=== PATIENT | male | born 1965 | race Caucasian/White ===

== ENCOUNTER 2025-06-04 10:30 | Inpatient (IN) | payer OTHER ==
--- OUTSIDE RECORDS SUMMARY | 2025-06-04 12:08 | XMS REPORT | Continuity of Care Document ---
Author Name Unknown Address [address] [facility] [place] [address] [facility] Address [address] [place] [address] Care Team Providers Care Zigzag Topstitcher Name Role Phone Unit, [place] Primary Care Physician [phone] JIGNA MABRY Attending Clinician Unavailab Parveen Lowe Attending Clinician [phone] Abel Lyons Attending Clinician Unavailable ALBERTO RODRIGUEZ Attending Clinician Unavailable Alberto Rodriguez MD Attending Clinician [phone] Doctor Unassigned, [place] Attending Clinician U agus Baires Attending Clinician Unavailable PORTILLO ALDANA Attending Clinician Unavailable EVERTON NAVA Attending Clinician Unavailable THUY VINCENT Attending Clinician Unavailab LORI Mtz Attending Clinician Unavailable CALLIE MCCLAIN Attending Clinician Unavailab Abel Morales Admitting Clinician Unavailable ALBERTO RODRIGUEZ Admitting Clinician Unavailable Alberto Rodriguez MD Admitting Clinician [phone] Dequan Admitting Clinician Unavailable Payers Payer Name Policy Type Policy Number Effective Date Expirati on Date Source Problems Condition Name Condition Details Condition Category Status Onset Date Resolution Date Last Treatment Date Treating Clinician Comments Source Incarcerat ed right inguinal hernia Incarcerat ed right inguinal hernia Disease Active 09-11 00:00: 00 [facility] Dysuria Dysuria Problem Active 11-08 00:00: 00 [facility] History of non-Hodgki ns lymphoma History of non-Hodgki ns Lymphoma Problem Active 11-08 00:00: 00 [facility] 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 Disease Active 09-24 00:00: 00 [facility] Allergies, Adverse Reactions, Alerts Allergy Name Allergy Type Status Severity Reaction(s) Onset Date Inactive Date Treating Clinician Comments Source No Known Allergie s DA Active U 09-26 00:00: 00 [facility] NO KNOWN ALLERGIE S Drug Class Active [facility] Social History Social Habit Start Date Stop Date Quantity Comments Source [facility] of Social function 2022-10-09 00:00:00 2022-10-09 00:00:00 [facility] Alcohol intake 2022-10-09 00:00:00 2022-10-09 00:00:00 Ex-drinker (finding) [facility] Exposure to SARS-CoV-2 (event) 2022-09-01 00:00:00 2022-09-11 14:41:00 Not sure [facility] Tobacco use and exposure 2022-09-11 00:00:00 2022-09-11 00:00:00 Smokeless tobacco non-user [facility] Sex assigned at 1965 00:00:00 1965 00:00:00 [facility] Smoking Status Start Date Stop Date Source Tobacco smoking consumption unknown [facility] Never smoked tobacco [facility] Medications Ordered Medication Name Filled Medication Name Start Date Stop Date Current Medication? Ordering Clinician Indication Dosage Frequency Signature (SIG) Comments Components Source ketorolac 60 mg/2 mL intramuscul ar solutionInj ect 2 mL by intramuscul ar route. ketorolac 60 mg/2 mL intramuscul ar solutionInj ect 2 mL by intramuscul ar route. 12-20 14:05: 00 No 2mL ketorolac 60 mg/2 mL intramuscu lar solutionIn ject 2 mL by intramuscu lar route. [facility] ibuprofen 800 mg tablet 2-10 00:00: 00 Yes [id number] 800mg Take 1 tablet by mouth every 6 (six) hours as needed for Pain (scale 4-6). [facility] gabapentin 100 mg capsule 2-10 00:00: 00 Yes [id number] 100mg Take 1 capsule by mouth in the morning and 1 capsule at noon and 1 capsule in the evening. [facility] HYDROcodone -acetaminop hen (NORCO) 5-325 mg tablet -10 00:00: 00 10-17 05:59 :00 No [id number] 1{tbl} Take 1 tablet by mouth every 12 (twelve) hours as needed for Pain (scale 7-10) for up to 7 days. Indication s: acute pain [facility] HYDROcodone -acetaminop hen (NORCO) 5-325 mg tablet 09-16 00:00: 00 09-24 05:59 :00 No 4647 1{tbl} Take 1 tablet by mouth every 8 (eight) hours as needed for Pain (scale 7-10) for up to 7 days. Indication s: acute pain [facility] HYDROcodone -acetaminop hen (NORCO 5) 5-325 mg tablet 1 tablet 09-12 02:15: 00 09-12 02:35 :00 No 1{tbl} 1 tablet, Oral, ONCE, 1 dose, On Wed09/11/22 at 2015, Routine, PACU [facility] FENTanyl PF (SUBLIMAZE (PF)) injection 25 mcg 09-12 01:39: 33 Yes 25ug 25 mcg, Slow IV Push, Q5MIN PRN, 4 doses, Starting on Wed09/11/22 at 1939, Until Discontinu ed, Routine, Pain (scale 4-6), PACU [facility] ondansetron (ZOFRAN (PF)) injection 4 mg 09-12 01:39: 33 Yes 4mg 4 mg, Slow IV Push, PRN, 1 dose, Starting on Wed09/11/22 at 1939, Until Discontinu ed, Routine, Nausea and Vomiting (N/V), PACU [facility] bupivacaine (preserv free) (SENSORCAIN E MPF) 0.25 % (2.5 mg/mL) 30 mL, bupivacaine liposome (PF) (EXPAREL (PF)) 1.3 % (13.3 mg/mL) 266 mg, NaCl 0.9% (NS) 50 mL 09-11 22:50: 00 09-12 01:36 :38 No PRN, Starting on Wed09/11/22 at 1650, Intra-op [facility] sodium chloride 0.9 % irrigation solution 09-11 22:28: 00 09-12 01:36 :38 No PRN, Starting on Wed09/11/22 at 1628, Until Wed09/11/22 at 1936, Intra-op [facility] ondansetron (ZOFRAN (PF)) injection 4 mg 09-11 21:45: 00 09-11 21:36 :00 No 4mg 4 mg, Slow IV Push, ONCE, 1 dose, On Wed09/11/22 at 1545, DARIAN [facility] ibuprofen 800 mg tablet 09-11 00:00: 00 Yes [id number] 800mg Take 1 tablet by mouth every 6 (six) hours as needed for Pain (scale 4-6). [facility] HYDROcodone -acetaminop hen (NORCO) 5-325 mg tablet 09-11 00:00: 00 09-19 05:59 :00 No [id number] 1{tbl} Take 1 tablet by mouth every 6 (six) hours as needed for Pain (scale 7-10) for up to 7 days. Indication s: acute pain [facility] amoxicillin amoxicillin No am [facility] amoxicillin 875 mg-potassiu m clavulanate 125 mg tablet TAKE ONE (1) TABLET(S) BY MOUTH EVERY TWELVE HOURS FOR 7 DAYS. DISCARD REMAINDER. amoxicillin 875 mg-potassiu m clavulanate 125 mg tablet TAKE ONE (1) TABLET(S) BY MOUTH EVERY TWELVE HOURS FOR 7 DAYS. DISCARD REMAINDER. No amoxicilli n 875 mg-potassi um clavulanat e 125 mg tablet TAKE ONE (1) TABLET(S) BY MOUTH EVERY TWELVE HOURS FOR 7 DAYS. DISCARD REMAINDER. [facility] bromphenira mine-pseudo ephedrine-D M 2 mg-30 mg-10 mg/5 mL oral syrup TAKE 10 ML(S) BY MOUTH EVERY FOUR HOURS NEEDED FOR COUGH AND CONGESTION. bromphenira mine-pseudo ephedrine-D M 2 mg-30 mg-10 mg/5 mL oral syrup TAKE 10 ML(S) BY MOUTH EVERY FOUR HOURS NEEDED FOR COUGH AND CONGESTION. No bromphenir amine-pseu doephedrin e-DM 2 mg-30 mg-10 mg/5 mL oral syrup TAKE 10 ML(S) BY MOUTH EVERY FOUR HOURS NEEDED FOR COUGH AND CONGESTION . [facility] lisinopril lisinopril No lisinopril [facility] lisinopril 10 mg tablet TAKE ONE (1) TABLET(S) BY MOUTH ONCE A DAY. lisinopril 10 mg tablet TAKE ONE (1) TABLET(S) BY MOUTH ONCE A DAY. No lisinopril 10 mg tablet TAKE ONE (1) TABLET(S) BY MOUTH ONCE A DAY. [facility] naproxen 500 mg tablet TAKE ONE (1) TABLET(S) BY MOUTH TWICE A DAY NEEDED FOR PAIN. naproxen 500 mg tablet TAKE ONE (1) TABLET(S) BY MOUTH TWICE A DAY NEEDED FOR PAIN. No naproxen 500 mg tablet TAKE ONE (1) TABLET(S) BY MOUTH TWICE A DAY NEEDED FOR PAIN. [facility] tramadol 50 mg tablet TAKE ONE (1) TABLET(S) BY MOUTH EVERY SIX HOURS NEEDED FOR 3 DAYS NEEDED FOR PAIN. tramadol 50 mg tablet TAKE ONE (1) TABLET(S) BY MOUTH EVERY SIX HOURS NEEDED FOR 3 DAYS NEEDED FOR PAIN. No tramadol 50 mg tablet TAKE ONE (1) TABLET(S) BY MOUTH EVERY SIX HOURS NEEDED FOR 3 DAYS NEEDED FOR PAIN. [facility] Vital Signs Vital Name Observation Time Observation Value Comments S ource BP Diastolic 2024-12-20 00:00:00 106 mm[Hg] [facility] Body Weight 2024-12-20 00:00:00 3137 [oz_av] [facility] Height 2024-12-20 00:00:00 73 [in_i] [facility] BP Systolic 2024-12-20 00:00:00 153 mm[Hg] [facility] BMI (Body Mass Index) 2024-12-20 00:00:00 25.9 kg/m2 [facility] Systolic blood pressure 2022-10-09 22:21:00 128 mm[Hg] [facility] Diastolic blood pressure 2022-10-09 22:21:00 93 mm[Hg] [facility] Heart rate 2022-10-09 22:21:00 97 /min [facility] Oxygen saturation in Arterial blood by Pulse oximetry 2022-10-09 22:21:00 99 /min [facility] Body temperature 2022-10-09 22:15:00 36.06 Mary Lou [facility] Respiratory rate 2022-10-09 22:15:00 18 /min [facility] Body weight 2022-10-09 22:15:00 85.639 kg [facility] BMI 2022-10-09 22:15:00 24.91 kg/m2 [facility] Body height 2022-10-09 22:09:00 185.4 cm [facility] Systolic blood pressure 2022-09-24 16:09:00 147 mm[Hg] [facility] Diastolic blood pressure 2022-09-24 16:09:00 102 mm[Hg] [facility] Heart rate 2022-09-24 16:09:00 87 /min Unive [facility] Oxygen saturation in Arterial blood by Pulse oximetry 2022-09-24 16:09:00 98 /min [facility] Body temperature 2022-09-24 16:08:00 36.22 Mary Lou [facility] Respiratory rate 2022-09-24 16:08:00 18 /min [facility] Body height 2022-09-24 16:08:00 182.9 cm [facility] Body weight 2022-09-24 16:08:00 84.188 kg [facility] BMI 2022-09-24 16:08:00 25.17 kg/m2 [facility] Heart rate 2022-09-12 02:45:00 82 /min Unive [facility] Respiratory rate 2022-09-12 02:45:00 17 /min [facility] Oxygen saturation in Arterial blood by Pulse oximetry 2022-09-12 02:45:00 98 /min [facility] Systolic blood pressure 2022-09-12 02:35:00 150 mm[Hg] [facility] Diastolic blood pressure 2022-09-12 02:35:00 99 mm[Hg] [facility] Body temperature 2022-09-12 01:22:00 36.39 Mary Lou [facility] Body height 2022-09-11 20:43:00 182.9 cm [facility] Body weight 2022-09-11 20:43:00 81.647 kg [facility] BMI 2022-09-11 20:43:00 24.41 kg/m2 [facility] Systolic blood pressure 2022-09-11 21:37:00 150 mm[Hg] [facility] Diastolic blood pressure 2022-09-11 21:37:00 109 mm[Hg] [facility] Heart rate 2022-09-11 21:37:00 71 /min [facility] Respiratory rate 2022-09-11 21:37:00 9 /min [facility] Oxygen saturation in Arterial blood by Pulse oximetry 2022-09-11 21:37:00 98 /min [facility] Body temperature 2022-09-11 20:43:00 35.56 Mary Lou [facility] Body height 2022-09-11 20:43:00 182.9 cm [facility] Body weight 2022-09-11 20:43:00 81.647 kg [facility] BMI 2022-09-11 20:43:00 24.41 kg/m2 [facility] BP Diastolic 2019-11-09 00:00:00 102 mm[Hg] [facility] Height 2019-11-09 00:00:00 72 [in_i] [facility] BMI (Body Mass Index) 2019-11-09 00:00:00 26.2 kg/m2 [facility] BP Systolic 2019-11-09 00:00:00 147 mm[Hg] [facility] Body Weight 2019-11-09 00:00:00 3093 [oz_av] [facility] Procedures Procedure Date / Time Performed Performing Clinician Source CT, abdomen + pelvis, w/wo contrast 2024-12-20 00:00:00 [facility] [id number] 2023-10-28 00:00:00 [id number] 2023-10-28 00:00:00 CONSENT/REFUSAL FOR DIAGNOSIS AND TREATMENT 2022-09-24 16:00:55 Doctor Unassigned, [place] [facility] CT ABDOMEN PELVIS W CONTRAST 2022-09-11 21:48:28 Alberto Rodriguez [facility] CT ABDOMEN PELVIS W CONTRAST 2022-09-11 21:48:28 Alberto Rodriguez [facility] INGUINAL HERNIORRHAPHY 2022-09-11 21:48:00 Duarte Rodriguez [facility] INSRT TUNN CV CATH W/SUB>5YRS 2011-10-23 22:45:00 Parveen Cole [facility] Encounters Start Date/Time End Date/Time Encounter Type Admission Type Attending Clinicians Care Facility Care Department Encounter ID Source 2024-12-20 14:26:00 2024-12-20 14:26:00 Outpatient JIGNA TAVARES [facility] [id number] [facility] 2024-12-20 00:00:00 2024-12-20 00:00:00 KELLY Chen: [address], [address], [place] [address] , Ph. MMG [facility] [id number] [facility] 2011-10-23 00:00:00 2024-10-14 05:36:24 Orders Only Parveen Cole [facility] 1..840.114 350.1.13.10 4.2.7.2.686 [id number] [facility] 2023-10-28 16:23:00 2023-10-29 12:11:00 Inpatient Abel Roman [facility] [id number] 19 [facility] 2022-10-27 15:45:00 2022-10-27 15:45:00 Outpatient R ALBERTO RODRIGUEZ [facility] [id number] [facility] 2022-10-09 13:00:00 2022-10-09 13:15:00 Office Visit Alberto Rodriguze [facility] 1..840.114 350.1.13.10 4.2.7.2.686 [id number] [facility] 2022-10-09 13:00:00 2022-10-09 13:00:00 Outpatient R ALBERTO RODRIGUEZ [facility] [id number] [facility] 2022-10-08 00:00:00 2022-10-08 00:00:00 Telephone Alberto Rodriguez [facility] 1..840.114 350.1.13.10 4.2.7.2.686 [id number] [facility] 2022-09-24 10:00:00 2022-09-24 10:33:04 Outpatient R ALBERTO RODRIGEUZ [facility] [id number] [facility] 2022-09-24 10:00:00 2022-09-24 10:33:04 Office Visit Alberto Rodriguez [facility] 1..840.114 350.1.13.10 4.2.7.2.686 [id number] [facility] 2022-09-24 00:00:00 2022-09-24 00:00:00 Orders Only Doctor Unassigned, [place] [facility] 1.2.840.114 350.1.13.10 4.2.7.2.686 [id number] [facility] 2022-09-16 00:00:00 2022-09-16 00:00:00 Telephone Alberto Rodriguez [facility] 1.2.840.114 350.1.13.10 4.2.7.2.686 [id number] [facility] 2022-09-11 14:40:00 2022-09-11 21:20:00 Outpatient X ALBERTO RODRIGUEZ [facility] PHAN [id number] [facility] 2022-09-11 14:40:00 2022-09-11 21:20:00 Emergency RodriguezAlberto wynn [facility] 1.2.840.114 350.1.13.10 4.2.7.2.686 [id number] [facility] 2022-09-11 15:45:00 2022-09-11 18:36:00 Surgery Rodriguez Alberto [facility] 1.2.840.114 350.1.13.10 4.2.7.2.686 [id number] [facility] 2020-01-05 15:44:00 2020-01-05 18:17:00 Emergency ER PORTILLO ALDANA [facility] [id number] [facility] 2019-12-27 15:39:00 2019-12-27 16:32:00 Emergency ER EVERTON NAVA [facility] [id number] [facility] 2019-11-09 14:05:00 2019-11-09 14:05:00 Outpatient THUY KELLY [facility] [id number] [facility] 2019-11-09 00:00:00 2019-11-09 00:00:00 Thuy Vincent, PARI MUTUEL CLERK: [address], [place] [address] , Ph. [facility] [place] [facility] [id number] [facility] 2009-02-03 10:12:00 2009-02-03 15:39:00 Emergency ER LORI NEGRETE [facility] [id number] [facility] 2006-10-22 05:59:00 2006-10-22 08:35:00 Emergency ER CALLIE MCCLAIN [facility] [id number] [facility] Results Test Description Test Time Test Comments Results Result Co mments Source CBC W/AUTO [id number] 07:30:00* Test Item Value Reference Range Interpretation Comme nts WHITE BLOOD CELL (test code = WBC) 6.9 K/MM3 3.8-9.8 N RED BLOOD CELL (test code = RBC) 4.17 M/MM3 3.95-5.67 N HEMOGLOBIN (test code = HGB) 13.8 G/DL 12.4-16.7 N HEMATOCRIT (test code = HCT) 39.5 % 35.9-49.5 MEAN CELL VOLUME (test code = MCV) 95 fL 81.7-96.1 N MEAN CELL HGB (test code = MCH) 33.1 pg 27.6-33.2 N MEAN CELL HGB CONCETRATION (test code = MCHC) 34.9 % 32.9-35.5 N RED CELL DISTRIBUTION WIDTH (test code = RDW) 13.2 % 12.1-15.2 N PLATELET COUNT (test code = PLT) 285 K/MM3 129-368 N MEAN PLATELET VOLUME (test c ode = MPV) 9.8 fl 7.4-10.4 N NEUTROPHIL % (test code = NT%) 47.3 % 43-75 N IMMATURE GRANULOCYTE % (test code = IG%) 0.3 % 0.0-2.0 N LYMPHOCYTE % (test code = LY%) 38.8 % 14-44 N MONOCYTE % (test code = MO%) 9.4 % 4-13 N EOSINOPHIL % (test code = EO%) 3.8 % 0-6 N BASOPHIL % (test code = BA%) 0.4 % 0-2 N NUCLEATED RBC % (test code = NRBC%) 0.0 % 0-1.0 N NEUTROPHIL # (test code = NT#) 3.28 K/mm3 2.0-7.6 N IMMATURE GRANULOCYTE # (test code = IG#) 0.02 x10 3/uL 0-0.03 N LYMPHOCYTE # (test code = LY#) 2.69 K/mm3 1.0-3.8 N MONOCYTE # (test code = MO#) 0.65 K/mm3 0.1-0.8 N EOSINOPHIL # (test code = EO#) 0.26 K/mm3 0.0-0.2 H BASOPHIL # (test code = BA#) 0.03 K/mm3 0.0-0.2 N NUCLEATED RBC # (test code = NRBC#) 0.00 K/mm3 0.0-0.1 N COMPREHENSIVE METABOLIC [id number] 07:18:00* Test Item Value Reference Range Interpretation Comme nts SODIUM (test code = NA) 137 MMOL/L 137-145 N POTASSIUM (test code = K) 4.1 MMOL/L 3.5-5.1 N CHLORIDE (test code = CL) 105 MMOL/L 98-107 N CARBON DIOXIDE (test code = CO2) 25 MMOL/L 22-30 N ANION GAP (test code = GAP) 11 MMOL/L 14-24 L GLUCOSE (test code = GLU) 98 MG/DL 74-106 N BLOOD UREA NITROGEN (test code = BUN) 21 MG/DL 9-20 H GLOMERULAR FILTRATION RATE (test code = GFR) > 60 The Glomerular Filtration Rate is a calculated parameterbased on serum Creatinine, patient age and sex. GFR valuesless than 60 mL/min/1.73 square meters are indicative ofChronic Kidney Disease. Values less than 15 mL/min/1.73square meters indicate Kidney failure. The calculation forGFR is based on the CKD-EPI (202) calculation. This formulais race indifferent and is the recommended formula for GFRby the National Kidney Foundation for Adults.The GFR will not calculate if the sex is unknown or if thepatient's age is <18 years. CREATININE (test code = CREAT) 1.00 MG/DL 0.66-1.25 N TOTAL PROTEIN (test code = PROT) 6.4 G/DL 6.2-7.6 N Ortho Clinical D iagnostic has made us aware of newinformation regarding the potential interference ofEltrombopag (a bone marrow stimulant used to treatthrombocytonmenia and aplastic anemia) with specific assayson the Vitros 5600 of which Total Protein is one of thoseassays performed in our lab.Interference testing performed at Ortho determined thatEltrombopag does interfere with Vitros Total Protein asfollowsEltrombopag Interference for Vitros Product Total Protein: Eltrombopag Max Observed Avg. BiasConcentration Concentration Concentration 2.5 mg/dl 6.0 g/dl +0.41 +0.34 3.5 mg/dl 6.0 g/dl +0.50 +0.45 5 mg/dl 6.0 g/dl +0.73 +0.65 2.5 mg/dl 8.0 g/dl +0.44 +0.41 3.5 mg/dl 8.0 g/dl +0.55 +0.52 5 mg/dl 8.0 g/dl +0.86 +0.77 ALBUMIN (test code = ALB) 3.6 G/DL 3.5-5.0 N CALCIUM (test code = CA) 8.4 MG/DL 8.4-10.2 N BILIRUBIN TOTAL (test code = BILT) 0.7 MG/DL 0.2-1.3 N Eltrombopag Inte rference for Vitros Product TBil, BuBc: Assay Eltrombopag Analyte/ Max Observed Avg. Bias Concentration Concentration Concentration TBil 7mg/dl TBil/ 1.2mg/dl +0.23mg.dl +0.20mg/dlBuBc 3.5mg/dl Bu/0.8mg/dl +0.25mg/dl +0.24mg/dlBuBc 7 mg/dl Bu/14.2mg/dl +0.38mg/dl +0.25mg/dlBuBc 5mg/dl Bc/0mg/dl +0.25mg/dl +0.15mg/dlBuBc 3.5mg/dl Bc/2.8mg/dl +0.25mg/dl +0.23mg/dl SGOT/AST (test code = AST) 24 UNITS/L 17-59 N SGPT/ALT (test code = ALT) 26 UNITS/L 0-49 N ALKALINE PHOSPHATASE (test code = ALKP) 56 UNITS/L 38-126 N [id number] 07:14:00* Test Item Value Reference Range Interpretation Comme nts DIGOXIN (test code = DIG) < 0.4 NG/ML 0.8-2.0 L GLUCOSE BEDSIDE [id number] 16:12:00* Test Item Value Reference Range Interpretation Comme nts GLUCOSE BEDSIDE TESTING (sunny t code = GLUBED) 102 MG/DL 60-99 H URINALYSIS [id number] 09:11:00* Test Item Value Reference Range Interpretation Comme nts UA COLOR (test code = COLU) YELLOW YELLOW UA APPEARANCE (test code = APPU) CLEAR CLEAR UA GLUCOSE DIPSTICK (test code = DGLUU) NORMAL MG/DL NORMAL UA BILIRUBIN DIPSTICK (test code = BILU) NEGATIVE MG/DL NEGATIVE UA KETONE DIPSTICK (test code = KETU) NEGATIVE MG/DL NEGATIVE UA SPECIFIC GRAVITY (test code = SGU) 1.015 1.003-1.030 N UA BLOOD DIPSTICK (test code = FRANCISCO) NEGATIVE Black/mm3 NEGATIVE UA PH DIPSTICK (test code = ANTHONY) 7.0 5.0-9.0 N UA PROTEIN DIPSTICK (test code = PROU) 15 MG/DL NEGATIVE UA UROBILINIOGEN DIPSTICK (test code = URO) NORMAL MG/DL NORMAL UA NITRITE DIPSTICK (test code = OLIVER) NEGATIVE NEGATIVE UA LEUKOCYTE ESTERASE DIPSTICK (test code = LEUU) NEGATIVE /mm3 NEGATIVE SOURCE OF URINE: VOIDEDUA [id number] 09:11:00* Test Item Value Reference Range Interpretation Comme nts UA RBC (test code = RBCU) 0-3 RBC/HPF 0-3 UA WBC (test code = XWBCU) 0-3 WBC/HPF 0-5 UA EPITHELIAL CELLS (test co de = EPIU) RARE EPI/HPF FEW UA BACTERIA (test code = XBACU) MANY NONE A UA AMORPHOUS SEDIMENT (test code = AMORU) FEW NONE A SOURCE OF URINE: [id number] 23:19:00* Test Item Value Reference Range Interpretation Comme nts MAGNESIUM (test code = MAG) 2.7 MG/DL 1.6-2.3 H THYROID STIMULATING [id number] 23:19:00* Test Item Value Reference Range Interpretation Comme nts THYROID STIMULATING HORMONE (test code = TSH) 1.010 MIU/L 0.465-4.68 N Please be aware that bias results for TSH may occur forpatient who are taking Biotin supplements. NT PRO-BRAIN NATRIURETIC [id number] 23:19:00* Test Item Value Reference Range Interpretation Comme nts NT PRO-BRAIN NATRIURETIC PEPTI (test code = PROBNP) 2170.0 pg/mL INTERPRETATION O F RESULTS Results of this test should be used in accordance with the appropriate clinical guidelines and in conjunction with clinical presentation and other diagnostic tests. Clinical guidelines recommend using natriuretic peptides in both Emergency Department (ED) and outpatient settings for diagnosis or exclusion of heart failure (HF). The performance of the AvaamoS NT-proBNP II test was evaluated separately in each of these settings using published age-independent and age-dependent cutoffs. EMERGENCY DEPARTMENT SETTINGS/INPATIENT: For patients presenting to the ED settings with acute or worsening dyspnea and clinical suspicion of HF, the VITROS NT-proBNP II test results should be interpreted as indicated in the table below. NT-pro BNP II Test Age Group Interpretation of Results Results (pg/mL) <300 All Negative: Heart Failure Unlikely -->=300 to <450 22-<50 Hall Zone: Result >=300 to <900 50-<75 Indeterminate >=300 to <1800 >=75 - Consider other causes of NT-proBNP elevation ---------------->=450 22-<50 >=900 50-<75 Positive: Heart Failure likely >=1800 >=75 OUTPAT IENT SETTINGS: In the outpatient settings, the optimal use of natriuretic peptides is to exclude HF. Therefore, a lower rule-out cutoff which increases sensitivity and negative predictive value is needed, as patients can present with limited, less acute HF symptoms. For ambulatory patients presenting to outpatient facilities with clinical suspicion of HF not previously diagnosed and at least one sign, symptom or risk factor for HF, the VITROSNT-proBNP II test results should be interpreted as indicatedin the table below. NT-pro BNP II Test Age Group Interpretation of Results Results (pg/mL) <125 All Negative: Heart Failure Unlikely ---------------->=125 All Consider Heart Failure as well as other causes* of NT-proBNP elevation. [id number] 23:19:00* Test Item Value Reference Range Interpretation Comme nts TROPONIN-I (test code = TROPI) 0.016 NG/ML 0.012-0.033 N BASIC METABOLIC [id number] 23:19:00* Test Item Value Reference Range Interpretation Comme nts SODIUM (test code = NA) 139 MMOL/L 137-145 N POTASSIUM (test code = K) 4.4 MMOL/L 3.5-5.1 N CHLORIDE (test code = CL) 104 MMOL/L 98-107 N CARBON DIOXIDE (test code = CO2) 31 MMOL/L 22-30 H GLUCOSE (test code = GLU) 108 MG/DL 74-106 H BLOOD UREA NITROGEN (test code = BUN) 16 MG/DL 9-20 N GLOMERULAR FILTRATION RATE (test code = GFR) > 60 The Glomerular Filtration Rate is a calculated parameterbased on serum Creatinine, patient age and sex. GFR valuesless than 60 mL/min/1.73 square meters are indicative ofChronic Kidney Disease. Values less than 15 mL/min/1.73square meters indicate Kidney failure. The calculation forGFR is based on the CKD-EPI (2020) calculation. This formulais race indifferent and is the recommended formula for GFRby the National Kidney Foundation for Adults.The GFR will not calculate if the sex is unknown or if thepatient's age is <18 years. CREATININE (test code = CREAT) 1.10 MG/DL 0.66-1.25 N CALCIUM (test code = CA) 9.6 MG/DL 8.4-10.2 N PROTHROMBIN [id number] 22:39:00* Test Item Value Reference Range Interpretation Comme nts PROTHROMBIN TIME PATIENT (test code = PTP) 13.4 SECONDS 10.1-12.6 H INTERNATIONAL NORMAL RATIO (test code = INR) 1.2 0.86-1.14 H The INR is to be used only for monitoring oral anticoagulanttherap y. INDICATION INR VALUE -------1. Prophylaxis, deep venous thrombosis, including high risk surgery. 2.0 - 3.0 2. Prophylaxis, deep venous thrombosis, hip surgery, treatment for deep venous thrombosis or pulmonary prevention of systemic embolism in patients with valvular heart disease, atrial fibrillation, tissue heart valve, or acute myocardial infarction. 2.0 - 3.0 3. Mechanical prosthesis heart valves, recurrent systemic embolism. 3.0 - 4.5 PTT [id number] 22:39:00* Test Item Value Reference Range Interpretation Comme nts PTT ACTIVATED (test code = APTT) 40.4 SECONDS 27.2-37.9 H CBC W/O [id number] 22:26:00* Test Item Value Reference Range Interpretation Comme nts WHITE BLOOD CELL (test code = WBC) 9.8 K/MM3 3.8-9.8 N RED BLOOD CELL (test code = RBC) 4.65 M/MM3 3.95-5.67 N HEMOGLOBIN (test code = HGB) 15.4 G/DL 12.4-16.7 N HEMATOCRIT (test code = HCT) 44.6 % 35.9-49.5 N MEAN CELL VOLUME (test code = MCV) 96 fL 81.7-96.1 N MEAN CELL HGB (test code = MCH) 33.1 pg 27.6-33.2 N MEAN CELL HGB CONCETRATION (test code = MCHC) 34.5 % 32.9-35.5 N RED CELL DISTRIBUTION WIDTH (test code = RDW) 13.2 % 12.1-15.2 N PLATELET COUNT (test code = PLT) 332 K/MM3 129-368 N NEUTROPHIL # (test code = NT#) 6.72 K/mm3 2.0-7.6 N IMMATURE GRANULOCYTE # (test code = IG#) 0.01 x10 3/uL 0-0.03 N LYMPHOCYTE # (test code = LY#) 2.10 K/mm3 1.0-3.8 N MONOCYTE # (test code = MO#) 0.74 K/mm3 0.1-0.8 N EOSINOPHIL # (test code = EO#) 0.21 K/mm3 0.0-0.2 H BASOPHIL # (test code = BA#) 0.03 K/mm3 0.0-0.2 N NUCLEATED RBC # (test code = NRBC#) 0.00 K/mm3 0.0-0.1 N - XR CHEST [id number] 20:48:00 [facility] 1965 Sex: M Patient Name: DEN DAVISIN Unit No: [id number] EXAMS: CPT CODE: [id number] XR CHEST 1V 92216 Chest one viewAP 10/27/2023 8:48 PM CLINICAL HISTORY: Chest pain COMPARISON: None available LOCATION: W1 FINDINGS:The lungs are clear. Cardiomediastinal contours are within normal limits. The central pulmonary vasculature is not engorged. IMPRESSION: Unremarkable frontal chest radiograph. at 2047 Reported and signed by: Ta Cardoza MD CC: Eulalio Cano MD Technologist: Serena Choudhury RT ARRT Transcrpt Date/Tm/Trnsp: 10/27/2023 (2047) BrittanyR.TS14 Orig Print D/T: S: 10/27/2023 (2050) [facility] NAME: DENILSON DAVIS [id number] PHYS: [place] [address] : 1965 AGE: 57 SEX: M LOC: .ERS PHONE #: [phone] EXAM DATE: 10/27/2023 STATUS: REG ER FAX #: [phone] RADIOLOGY NO: PAGE 1 Signed ReportCBC W Auto Differential panel - [id number] 12:18:00* Test Item Value Reference Range Interpretation Comme nts white blood count (test code = white blood count) 6.0 K/uL 4.0-12.3 red blood count (test code = red blood count) 4.49 M/uL 3.80-5.80 hemoglobin (test code = hemoglobin) 14.8 g/dL 11.7-17.2 hematocrit (test code = hematocrit) 43.9 % 35.0-51.0 Erythrocyte mean corpuscular volume [Entitic volume] (test code = 71108-3) 97.8 fL 83-100 mean corpuscular hemoglobin (test code = mean corpuscular hemoglobin) 33.0 pg 26.8-33.4 mean corpuscular HGB conc (t est code = mean corpuscular HGB conc) 33.7 g/dL 30-35 red cell distribution width (test code = red cell distribution width) 12.9 % 12.0-14.0 platelet count (test code = platelet count) 325 K/uL 175-450 mean platelet volume (test c ode = mean platelet volume) 9.6 fL 9.4-12.6 Neutrophils.segmented/100 leukocytes in Blood (test code = 34592-3) 50.5 % 44.7-82.4 Granulocytes Immature [#/vol ume] in Blood (test code = 86780-0) 0.0 K/uL 0.0-0.03 lymphocyte% (test code = lymphocyte%) 31.4 % 10.0-50.0 mono % (test code = mono %) 10.3 % 3.9-13.4 eos % (test code = eos %) 6.9 % 0.0-6.4 H Basophils/100 leukocytes in Unspecified specimen (test code = 99334-1) 0.7 % 0.2-1.2 Neutrophils.band form [#/vol ume] in Blood (test code = 24022-5) 3.01 K/uL 1.78-5.38 Lymphocytes [#/volume] in Unspecified specimen by Automated count (test code = 51361-5) 1.9 K/uL 1.32-3.57 mono # (test code = mono #) 0.61 K/uL 0.30-0.82 eos # (test code = eos #) 0.41 K/uL 0.04-0.54 basophil # (test code = baso yazmin #) 0.04 K/uL 0.01-0.08 NRBC% (test code = NRBC%) 0 /100 WBC 0-0.2 NRBC# (test code = NRBC#) 0 K/uL [facility] Groupdifferential panel, [id number] 12:18:00 NeutrophilsBandLymphocyteAtypical LymphMonocyteEosinophilBasophilMetamyelocyteMyelocyteNucleated Red Blood CellPlatelet EstimatePlatelet MorphologyPolychromasiaPoikilocytosisAnisocytosisMacrocytosisToxic GranulationDohle BodiesBurr CellsRouleauToxic VacuolationGiant PlateletsDifferential comment-PMataMayo Memorial Hospital GroupUrinalysis complete W Reflex Culture panel - [id number] 12:18:00* Test Item Value Reference Range Interpretation Comme nts Color of Urine by Auto (test code = 06126-4) brown A Appearance of Urine (test code = 5767-9) SL cloudy clear Glucose [Mass/volume] in Urine (test code = 2350-7) negative negative bilirubin, urine (test code = bilirubin, urine) negative negative ketone, urine (test code = ketone, urine) negative negative Specific gravity of Urine by Automated test strip (test code = 15310-9) >=1.030 1.003-1.030 Hemoglobin [Presence] in Urine by Test strip (test code = 5794-3) small negative H pH of Urine (test code = 2756-5) 6.000 5-9 protein urine (UA) (test code = protein urine (UA)) =2+ (100 negative H Urobilinogen [Presence] in Urine (test code = 18909-7) 1.0 E.U./dL 0.2-1.0 Nitrite [Presence] in Urine by Test strip (test code = 5802-4) negative negative urine leukocyte esterase (test code = urine leukocyte esterase) trace negative H Erythrocytes [Presence] in Urine (test code = 91053-4) test not performed 0-5 WBC, urine (test code = WBC, urine) test not performed 0-5 Epithelial cells [Presence] in Urine sediment by Light microscopy (test code = 84369-2) test not performed 0-5 bacteria, urine (test code = bacteria, urine) test not performed none detect Casts [#/area] in Urine sediment by Automated count (test code = 57194-1) test not performed none detect urine culture added? (test code = urine culture added?) yes squamous epithelial cell urine (test code = squamous epithelial cell urine) test not performed 0-5 transitional epi cells, urine (test code = transitional epi cells, urine) test not performed 0-5 renal epithelial cells, urine (test code = renal epithelial cells, urine) test not performed 0-5 urine crystals (test code = urine crystals) test not performed none detect [facility] GroupComprehensive metabolic 2000 panel - Serum or Plasma 2019-11-09 12:18:00* Test Item Value Reference Range Interpretation Comme nts Glucose [Mass/volume] in Ser um or Plasma (test code = 2345-7) 74 mg/dL 74-106 Urea nitrogen [Mass/volume] in Serum or Plasma (test code = 3094-0) 15 mg/dL 6-20 osmolality calculated,serum (test code = osmolality calculated,serum) 273 mOsm/kg 280-300 L creatinine (test code = creatinine) 1.1 mg/dL 0.70-1.20 glomerular filtration rate ( test code = glomerular filtration rate) >60.00 Urea nitrogen/Creatinine [Ma ss Ratio] in Serum or Plasma (test code = 3097-3) 13.6 12-20 sodium level (test code = so dium level) 137 mmol/L 135-145 potassium level (test code = potassium level) 4.6 mmol/L 3.5-5.2 chloride level (test code = chloride level) 98 mmol/L 98-108 CO2 (test code = CO2) 27 mmol/L 21-32 anion gap (test code = anion gap) 16.6 mEq/L 12-20 calcium level (test code = calcium level) 9.7 mg/dL 8.6-10.0 total protein (test code = t otal protein) 7.3 g/dL 6.6-8.7 albumin (test code = albumin) 4.5 g/dL 3.5-5.2 globulin (test code = globulin) 2.8 gm/dL A/G ratio (test code = A/G ratio) 1.6 >1.0 bilirubin,total (test code = bilirubin,total) 0.5 mg/dL 0.0-1.2 AST/SGOT (test code = AST/SGOT) 21 U/L 15-40 Alanine aminotransferase [Enzymatic activity/volume] in Serum or Plasma (test code = 1742-6) 25 U/L 0-41 Alkaline phosphatase [Enzyma tic activity/volume] in Serum or Plasma (test code = 6768-6) 52 U/L 40-130 [facility]SUB>[id number] 23:10:00INSRT TUNN CV CATH W/SUB>5YRS*.*.*.*.*.*.*.*.*.*.*.*.*.*FINAL*.*.*.*.*.*.*.*.*.*.*.*.*.*.*PROCEDU RE: Tunneled Venous access INDICATION: 45 yo WM with 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 TECHNIQUE: Informed consent was obtained and a timeout was performed prior to the procedure. Boyce protocol- rightpatient, right site, right procedure- was followed. Thepatient was prepped and draped in the usual sterile fashion. Coagulationparameters were within sofya l limits. Ancef 1 gm IVPB was given preprocedure for antibiotic prophylaxis. Moderate sedation, whichconsisted of Versed 2mg and Fentanyl 100mcg IV, was utilized during the procedure. A pre-procedureultrasound showed the right internal jugular vein to be patent. After infiltrating with Lidocaine 2% and using ultrasound and fluoroscopic guidance, the Right IJ vein was punctured and asingle lumen 8Fr chest power injectable port catheter was placed with its tip in the superior vena cava. A subcutaneous pocket was made in the right chest wall and the pocket was irrigated with sterile saline. ?Hemostasis was achieved. The port wasplaced in the subcutaneous pocket over the right chest wall and se cured in place with vicryl sutures. Thecatheter was was tunneled to the right internal jugular veinand cut to 21 cm length. The pocket was closed with4-0 Vicryl uninterrupted sutures.The port was primed with saline and flushed with 100units/mL hepflush. Good blood return was noted. Procedure by FARSHAD Spaulding and La Nena Lehman MD Supervising physician Kristy Shah MD IMPRESSION: Successful power injectable infusion port placement.[facility] Notes Date/Time Note Provider Source 2023-11-01 14:25:00 [id number] [place] [id number] PATIENT NAME: DENILSON DAVIS ADMIT DATE: 10/28/23 ACCOUNT NO: [id number] ROOM NO: Z.507 AGE: 57 REPORT TYPE: eTRANSESOPHAGEAL ECHO SEX: M ADMITTING PHYSICIAN:Abel Lyons MD ATTENDING PHYSICIAN:Abel Lyons MD *[facility]* [address] [place] [id number] Transesophageal Echocardiogram Patient: Denilson Davis Study Date: 10/28/2023 BP: URN: [id number] Location: : 1965 Age: 57 Gender: M Height: 61 in / 154.9 cm Weight: 196 lb / 88.9 kg BMI/BSA: 37 kg/m 2 / 2 m 2 *Ordering Physician: * Papo Jones MD *Interpreting Physician: * Papo Jones MD *Director Of Consumer Affairs: * COLLETTE ERAZO Study data: Consent: The risks, benefits, and alternatives to the procedure were explained to the patient and informed consent was obtained. Procedure: The patient arrived at the laboratory in a fasting state. Intravenous access was obtained. Surface ECG leads and pulse oximetric signals were monitored. Moderate sedation was administered by cardiology staff. A transesophageal echocardiogram was performed. Topical anesthesia was obtained using viscous lidocaine. A transesophageal probe was inserted by the attending storage battery inspector without difficulty. Complete 2D, spectral Doppler, and color Doppler. Study completion: The patient tolerated the procedure well. There were no complications. Findings Left ventricle: The cavity size is dilated. Systolic function is severely reduced. PATIENT NAME: DENILSON DAVIS [id number] [place] [address] PATIENT NAME: DENILSON DAVIS ADMIT DATE: 10/28/23 ACCOUNT NO: [id number] ROOM NO: [facility] AGE: 57 REPORT TYPE: eTRANSESOPHAGEAL ECHO SEX: M ADMITTING PHYSICIAN:Abel Lyons MD ATTENDING PHYSICIAN:Abel Lyons MD Right ventricle: The cavity size is normal. Systolic function is severely reduced. Ventricular septum: The ventricular septum is normal. Left atrium: The atrium is normal in size. There is no evidence of a thrombus in the atrial cavity or appendage. No spontaneous echo contrast is observed. Appendage: Emptying velocity is normal. There is no evidence of a thrombus. Right atrium: The atrium is normal in size. Atrial septum: The septum is normal. Aortic valve: The leaflets are normal thickness. There is mild regurgitation. Mitral valve: The leaflets are normal thickness. There is mild regurgitation. Tricuspid valve: The leaflets are normal thickness. There is no significant regurgitation. Pulmonic valve: Not well visualized. There is no significant regurgitation. Pericardium: There is no pericardial effusion. Conclusions Summary: 1. Left ventricle: The cavity size is dilated. Systolic function is severely reduced. 2. Right ventricle: Systolic function is severely reduced. 3. Left atrium: There is no evidence of a thrombus in the atrial cavity or appendage. No spontaneous echo contrast is observed. Appendage: There is no evidence of a thrombus. Electronically signed by Papo Jones MD 11/01/2023 14:25 at 1425 PATIENT NAME: DENILSON DAVIS [facility] 2023-10-29 06:35:00 [facility] Cardiology Progress Note REPORT#:[id number] REPORT STATUS: Signed REPORT INITIALIZATION DATE:10/29/23 TIME: 634 PATIENT: DENILSON DAVIS UNIT #: [id number] ROOM/BED: [address] : [birth year] AGE: 57 SEX: M ATTEND: Abel Lyons MD ADM AUTHOR: Papo Jones MD REPT SERVICE DT/TIME: 10/29/23 0635 * ALL edits or amendments must be made on the electronic/computer document * Subjective Chief complaint: Atrial Flutter Patient reports: No: chest pain, palpitations, shortness of breath. Objective General VS/I O: 24 hour I O ending at 0700: 10/28 0700 1900 Intake Total 450 Output Total Balance 450 Intake, Oral 450 Number Voids 2 1 Vital Signs: Date Time Temp Pulse Resp B/P B/P Pulse O2 O2 Flow FiO2 Mean Ox Delivery Rate 10/28 413 97.9 61 16 127/89 101.3 96 Room air 1916 97.7 63 16 130/93 105.3 100 Room air 1742 59 18 131/88 102.3 99 1410 137 16 129/96 107 97 Room air 0821 135 16 132/94 106 98 Room air 0818 98 0726 133 16 120/95 103 96 Room air PATIENT WEIGHT: Weight (lb): Weight (oz): Weight (kg): 89.091 Medications: Active Meds + DC'd Last 24 Hrs Famotidine (PEPCID) 40 MG DAILY PO Enoxaparin Sodium (LOVENOX) 90 MG Q12HR SUBQ Metoprolol Tartrate (LOPRESSOR) 100 MG Q12HR PO Etomidate (AMIDATE) 0 .STK-MED ONE .ROUTE (DC) Lidocaine HCl (Glydo 2% JELLY) 0 .STK-MED ONE .ROUTE (DC) Atropine Sulfate (ATROPINE SULFATE) 0 .STK-MED ONE .ROUTE (DC) Benzocaine (HURRICAINE) 0 .STK-MED ONE .ROUTE (DC) Lidocaine HCl (LIDOCAINE HCL) 0 .STK-MED ONE .ROUTE (DC) Fentanyl Citrate (SUBLIMAZE (C-II)) 0 .STK-MED ONE .ROUTE (DC) Flumazenil (ROMAZICON) 0 .STK-MED ONE .ROUTE (DC) Midazolam HCl (VERSED (C-IV)) 0 .STK-MED ONE .ROUTE (DC) Naloxone HCl (NARCAN) 0 .STK-MED ONE .ROUTE (DC) Enoxaparin Sodium (LOVENOX) 90 MG ONCE ONE SUBQ (DC) Metoprolol Tartrate (LOPRESSOR) 50 MG STAT STA PO (DC) Digoxin (LANOXIN) 0.25 MG STAT STA PO (DC) Metoprolol Tartrate (LOPRESSOR) 50 MG Q12HR PO (DC) Acetaminophen (TYLENOL) 650 MG Q4H PRN PRN PO Hydralazine HCl (APRESOLINE) 10 MG Q4H PRN PRN IV Metoprolol Tartrate (LOPRESSOR 5MG IJ) 5 MG Q6H PRN PRN IV Ondansetron HCl (ZOFRAN) 4 MG Q8H PRN PRN IV Physical Exam General appearance: alert, awake, oriented Head/Eyes: atraumatic, normocephalic ENT: moist mucosal membranes Neck: no JVD Cardiovascular: CV assessment: regular rate and rhythm Respiratory: clear to auscultation, no distress Lower extremity: LE assessment: no edema Musculoskeletal: full range of motion Neuro/FUR DRESSER: alert, oriented X 3, CN II-XII intact Skin: dry, intact Psychiatry: normal affect, normal judgment/insight, normal mood Results Findings/Data: Laboratory Tests 1527 Chemistry POC Glucose (60 - 99 MG/DL) 102 H Diagnosis, Assessment Plan Free Text DxA P Notes Free Text DxA P Notes: IMP: Atrial Flutter s/p cardioversion PLAN: d/c home f/u with Dr. Ortega. at 0530 RPT #:[id number] END OF REPORT [facility] 2023-10-29 06:13:00 [facility] ([facility]) Hospitalist Discharge Summary REPORT#:[id number] REPORT STATUS: Signed REPORT INITIALIZATION DATE:10/29/23 TIME: 612 PATIENT: DENILSON DAVIS UNIT #: [id number] [facility] AGE: 57 SEX: M ATTEND: Abel Lyons MD ADM AUTHOR: Dajuan Christianson MD R1 REPT SERVICE DT/TIME: 10/29/23 06 * ALL edits or amendments must be made on the electronic/computer document * Sammy,Dajuan E 10/29/23 0613: General Information Problem List/A P: 1. Atrial flutter with rapid ventricular response 2. HARLEY (acute kidney injury) 3. Atrial fibrillation status post cardioversion Date of admission: Observation Start Date: 10/27/23 Date of admission: 10/28/23 Discharge date: 10/29/23 Admission diagnosis: Typical Atrial Flutter Acute Kidney Injury Discharge diagnosis: Atrial Flutter, Resolved HARLEY, Resolved Hospital course: Mr. Davis is a 57 year old Man with PMH of remote [facility], who was transferred from [facility] for evaluation of 2:1 atrial flutter on 10/27/23. Per patient he began experiencing symptoms of lightedheadness and exhaustion on 10/25 during the end of work and went home early to rest. The symptoms continued prompting him to seek evaluation the next morning, in the outside ED he was found to be in atrial flutter with rapid ventricular response. Pharmacologic conversion was attempt with metoprolol and digoxin, the patient was initially responsive befor reverting back. EP cardiology was consulted and accepted the transfer for admission. The patient mainted HDS during his entire course and on transfer continued to be in 2:1 flutter on admission. He was provided another dose of metoprolol and digoxin as well as anticoagulation. EP cardiology evaluated the patient and performed a PIEDAD with synchronized cardioversion, this was successful and the patient reverted back to NSR with a HR of 60s. The patient did well overnight and is now medically cleared to discharge with appropriate medications sent to pharmacy and hearing consultant f/up in 1-2 weeks. Patient is agreeable to this plan. Consultants: electrophysiology Pt. condition on discharge: improved, stable Med Rec Med Rec Discharge meds: Start taking the following new medications: METOPROLOL SUCC XL (TOPROL XL) 25 MG TAB.SR.24H 25 MILLIGRAM ORAL DAILY. Qty = 30 Refills = 1 APIXABAN (ELIQUIS) 5 MG TAB 5 MILLIGRAM ORAL TWICE DAILY. Qty = 90 No Refills Objective VS/I O Last Documented: Result Date Time Pulse Ox 96 10/28 413 B/P 127/89 10/284 B/P Mean 101.3 10/284 O2 Delivery Room air 10/28 413 Temp 97.9 03/01 0414 Pulse 61 10/28 0414 Resp 16 10/284 24 hour I O ending at 0700: 10/28 0700 1900 Intake Total 450 Output Total Balance 450 Intake, Oral 450 Number Voids 2 1 General appearance: alert, awake, oriented Head/Eyes: atraumatic, normal eyelids/periorb., normocephalic ENT: normal ear left, normal ear right, normal nose Neck: full range of motion, non-tender, no bruit/NL carotids Cardiovascular: irregularly irregular (3:1 A Flutter), tachycardic (130s), regular rate rhythm Respiratory: aerating well, symmetric expansion, no distress Abdomen: non-tender, normal bowel sounds, soft, no distention Genitourinary: no bladder distention, no flank pain, no urinary catheter Extremities: moves all, normal range of motion Musculoskeletal: painless range of motion, no CVA tenderness, no midline vertebral tend, no muscle spasm Neuro/FUR DRESSER: alert, oriented X 3, normal speech Skin: dry, intact, normal temperature, no rash Psychiatry: normal affect, normal judgment/insight, normal mood Results Findings/Data: Laboratory Tests: 1527 Chemistry POC Glucose (60 - 99 MG/DL) 102 H Results: labs reviewed, vital signs reviewed, current med profile rev'd Discharge Instructions PCP PCP follow-up: PCP: Undefined Provider Additional Discharge Routines: PCP Follow-Up, [employer] Truck Driver Follow-Up Return to work/school date: 11/01/23 Prescriptions: on chart, e-prescribe Discharge management: greater than 30 mins, face to face encounter Time spent: Time spent on patient care (minutes): 36 Follow-up Appointments Consulting provider 1: Provider 1: Papo Jones MD Specialty: Epidemilogy Consult follow up timeframe: In 1-2 weeks Quality: Discharge Current Medications Current medication review: I attest that the foregoing medication list in the medical record is true, accurate, and complete to the best of my knowledge. BMI Screening > 25 or < 18.5 BMI status/follow-up: abnl BMI, pt to F/U w/PCP Attestations Attestation needed: teaching physician Abel Lyons 10/29/23 5216: Attestations Teaching Physician Attestation F/U visit w/ resident: I saw and examined the patient with the resident Dr Christianson PGY1 and . . . agree with the resident's findings and plan. pt had successful cardioversion after PIEDAD showed no intra-atrial thrombus. He remains in NSR this morning without palpitation. Pt c/o mild left arm edema 2/2 infiltration of his peripheral IV access. IV is removed and pt re-assured the edema will improve in a few days. He;'s d/c in stable condition on metoporlol and eliquis. F/u Dr jones as instructed at 1012 at 1758 RPT #:[id number] END OF REPORT [facility] 2023-10-29 05:59:00 [id number] [place] [id number] PATIENT NAME: DENILSON DAVIS ADMIT DATE: 10/28/23 ACCOUNT NO: [id number] ROOM NO: [facility] AGE: 57 REPORT TYPE: ELECTROCARDIOGRAM SEX: M ADMITTING PHYSICIAN:Abel Lyons MD ATTENDING PHYSICIAN:Abel Lyons MD Order: [id number] Test Reason : AFlutter Test Date/Time Stamp: WedOct 29 2023 05:59:01 Blood Pressure : / mmHG Vent. Rate : 062 BPM Atrial Rate : 062 BPM P-R Int : 162 ms QRS Dur : 092 ms QT Int : 420 ms P-R-T Axes : 066 053 -65 degrees QTc Int : 426 ms Normal sinus rhythm Nonspecific ST and T wave abnormality Abnormal ECG No previous ECGs available Confirmed by ELIEZER ORTEGA ([id number]) on 10/29/2023 3:02:42 PM Referred By: Self Referred Confirmed by:ELIEZER ORTEGA at 1502 PATIENT NAME: DENISLON DAVIS [facility] 2023-10-28 18:13:00 [id number] [place] [id number] PATIENT NAME: DENILSON DAVIS ADMIT DATE: 10/28/23 ACCOUNT NO: [id number] ROOM NO: Z.507 AGE: 57 REPORT TYPE: ELECTROCARDIOGRAM SEX: M ADMITTING PHYSICIAN:Abel Lyons MD ATTENDING PHYSICIAN:Abel Lyons MD Order: [id number] Test Reason : AFlutter Test Date/Time Stamp: WedOct 28 2023 18:13:35 Blood Pressure : / mmHG Vent. Rate : 057 BPM Atrial Rate : 057 BPM P-R Int : 166 ms QRS Dur : 090 ms QT Int : 448 ms P-R-T Axes : 068 048 102 degrees QTc Int : 436 ms Sinus bradycardia Cannot rule out Anterior infarct , age undetermined ST and T wave abnormality, consider lateral ischemia Abnormal ECG No previous ECGs available Confirmed by ELIEZER ORTEGA ([id number]) on 10/29/2023 3:03:14 PM Referred By: Self Referred Confirmed by:ELIEZER ORTEGA at 1503 PATIENT NAME: DENILSON DAVIS [facility] 2023-10-28 15:43:00 [id number] [place] [address] PATIENT NAME: DENILSON DAVIS ADMIT DATE: 10/28/23 ACCOUNT NO: [id number] ROOM NO: Z.507 AGE: 57 REPORT TYPE: ELECTROCARDIOGRAM SEX: M ADMITTING PHYSICIAN:Abel Lyons MD ATTENDING PHYSICIAN:Abel Lyons MD Order: [id number] Test Reason : AFlutter Test Date/Time Stamp: WedOct 28 2023 15:43:39 Blood Pressure : / mmHG Vent. Rate : 055 BPM Atrial Rate : 055 BPM P-R Int : 162 ms QRS Dur : 088 ms QT Int : 392 ms P-R-T Axes : 060 053 077 degrees QTc Int : 375 ms Sinus bradycardia Nonspecific ST and T wave abnormality Abnormal ECG No previous ECGs available Confirmed by ELIEZER ORTEGA ([id number]) on 10/29/2023 3:03:25 PM Referred By: Self Referred Confirmed by:ELIEZER ORTEGA at 1503 PATIENT NAME: DENILSON DAVIS [facility] 2023-10-28 15:38:00 [id number] [address] PATIENT NAME: DENILSON DAVIS ADMIT DATE: 10/28/23 ACCOUNT NO: [id number] ROOM NO: [facility] AGE: 57 REPORT TYPE: OPERATIVE REPORT SEX: M ADMITTING PHYSICIAN:Abel Lyons MD ATTENDING PHYSICIAN:Abel Lyons MD OPERATION DATE: 10/28/2023 PROCEDURE: Cardioversion. PREPROCEDURE DIAGNOSIS: Typical atrial flutter. POSTPROCEDURE DIAGNOSIS: Typical atrial flutter. MINE DEVELOPMENT ENGINEER: Papo Jones MD PATTERN RULER: None. ANESTHESIA: Deep sedation with intravenous etomidate. DESCRIPTION OF PROCEDURE: After informed consent was obtained explaining to the patient risks and benefits and following a transesophageal echocardiogram, which verified no intracardiac thrombus, a single 50 joule synchronized biphasic shock was applied via anterior and apical defibrillation pads. This resulted in sinus rhythm. The patient tolerated the procedure well with no complications. CONCLUSION: Successful cardioversion. COMPLICATIONS: No complications. Dictated By: Papo Jones MD Date Dictated: 10/28/2023 15:38:27 Date Transcribed: 10/28/2023 17:31:33 GSP/PUS Receipt ID: [id number] Authenticated by Papo Jones MD On 11/02/2023 04:35:21 PM at 0435 PATIENT NAME: DENILSON DAVIS [facility] 2023-10-28 09:46:00 [facility] ([facility]) Hospitalist Progress Note REPORT#:[id number] REPORT STATUS: Signed REPORT INITIALIZATION DATE:10/28/23 TIME: 09 PATIENT: DENILSON DAVIS UNIT #: [id number] ROOM/BED: [place] [id number] : 67 AGE: 57 SEX: M ATTEND: Abel Lyons MD ADM AUTHOR: Dajuan Christianson MD R1 REPT SERVICE DT/TIME: 10/28/23 0946 * ALL edits or amendments must be made on the electronic/computer document * Dajuan Christianson 10/28/23 0946: Subjective Chief complaint: Chest discomfort HPI: Patient assessed in AM in ED bed 4. Patient reports doing well overnight, feels like his chest fluttering has resolved. Patient informed me that this is the first time he has experienced anything like this and sees his PCP regularly and does not take any medications at home nor has been diagnosed with any underlying conditions. On exam patient was still in atrial flutter with VR in 130s. Patient is NPO and preparing for labor relations worker ablation later today. Patient denies any shortness of breath, chest pain, blurred vision, headache, or syncopal events. Review of Systems Constitutional: Denies: chills, fatigue, fever, generalized weakness. Skin: Denies: diaphoresis, rash, swelling. Eyes: Denies: eye pain, photophobia, swelling. ENT: Denies: sinus problem, sore throat, throat pain. Respiratory: Denies: NIELSEN (dyspnea on exertion), non productive cough, SOB, wheezing. Cardiovascular: Reports: palpitations. Denies: chest pain, NIELSEN (dyspnea on exertion), parox nocturnal dyspnea. GI: Denies: abdominal pain, diarrhea, nausea, vomiting. : Denies: flank pain, frequency, urgency. Musculoskeletal: Denies: myalgias, neck pain, thoracic pain. Neuro: Denies: bladder dysfunction, bowel dysfunction, headache, lightheaded, weakness. Psych: Denies: agitation, anxiety, insomnia, stress. All systems rev neg: except as noted Objective General VS/I O: Vital Signs: Date Time Temp Pulse Resp B/P B/P Pulse O2 O2 Flow FiO2 Mean Ox Delivery Rate 820 135 16 132/94 106 98 Room air 0818 98 0726 133 16 120/95 103 96 Room air 0257 121 19 137/87 103 99 10/27 2226 138 18 145/113 123 99 Room air 10/27 1931 97.4 132 19 127/84 98 99 Room air 24 hour I O ending at 0700: 0700 10/27 1900 Intake Total Output Total Balance Patient 89.091 kg Weight Weight Stated/Reported Measurement Method PATIENT WEIGHT: Weight (lb): Weight (oz): Weight (kg): 89.091 Medications: Active Meds + DC'd Last 24 Hrs Metoprolol Tartrate (LOPRESSOR) 50 MG Q12HR PO Acetaminophen (TYLENOL) 650 MG Q4H PRN PRN PO Hydralazine HCl (APRESOLINE) 10 MG Q4H PRN PRN IV Metoprolol Tartrate (LOPRESSOR 5MG IJ) 5 MG Q6H PRN PRN IV Ondansetron HCl (ZOFRAN) 4 MG Q8H PRN PRN IV Metoprolol Tartrate (LOPRESSOR) 25 MG ONCE ONE PO (DC) Digoxin (LANOXIN) 0.25 MG X1ED STA PO (DC) Dietitian nutrition assessment The data set between the solid lines has been imported from the dietitian's assessment. BMI Calculated: 27.4 Nutrition related diagnosis: Nutrition diagnosis details: Nutrition problem: Nutrition etiology: Nutrition signs and symptoms: Nutrition prescription: Dietitian name: Assessment completed: Physical Exam General appearance: alert, awake, oriented Head/Eyes: atraumatic, normal eyelids/periorb., normocephalic ENT: normal ear left, normal ear right, normal nose Neck: full range of motion, non-tender, no bruit/NL carotids Cardiovascular: irregularly irregular (3:1 A Flutter), tachycardic (130s), regular rate rhythm Respiratory: aerating well, symmetric expansion, no distress Abdomen: non-tender, normal bowel sounds, soft, no distention Genitourinary: no bladder distention, no flank pain, no urinary catheter Extremities: moves all, normal range of motion Musculoskeletal: painless range of motion, no CVA tenderness, no midline vertebral tend, no muscle spasm Neuro/FUR DRESSER: alert, oriented X 3, normal speech Skin: dry, intact, normal temperature, no rash Results Findings/Data: Laboratory Tests 10/27 2207 Chemistry Sodium (137 - 145 MMOL/L) 139 Potassium (3.5 - 5.1 MMOL/L) 4.4 Chloride (98 - 107 MMOL/L) 104 Carbon Dioxide (22 - 30 MMOL/L) 31 H BUN (9 - 20 MG/DL) 16 Creatinine (0.66 - 1.25 MG/DL) 1.10 Glomerular Filtr Rate > 60 Glucose (74 - 106 MG/DL) 108 H Calcium (8.4 - 10.2 MG/DL) 9.6 Magnesium (1.6 - 2.3 MG/DL) 2.7 H Troponin I (0.012 - 0.033 NG/ML) 0.016 NT-Pro-B Natriuret Pep (pg/mL) 2170.0 TSH (0.465 - 4.68 MIU/L) 1.010 Laboratory Tests 10/27 2207 Coagulation INR (0.86 - 1.14) 1.2 H APTT (27.2 - 37.9 SECONDS) 40.4 H PT Patient/Control Mix (10.1 - 12.6 SECONDS) 13.4 H Laboratory Tests 10/27 2207 Hematology WBC (3.8 - 9.8 K/MM3) 9.8 RBC (3.95 - 5.67 M/MM3) 4.65 Hgb (12.4 - 16.7 G/DL) 15.4 Hct (35.9 - 49.5 %) 44.6 MCV (81.7 - 96.1 fL) 96 MCH (27.6 - 33.2 pg) 33.1 MCHC (32.9 - 35.5 %) 34.5 RDW (12.1 - 15.2 %) 13.2 Plt Count (129 - 368 K/MM3) 332 Neut # (Auto) (2.0 - 7.6 K/mm3) 6.72 Lymph # (Auto) (1.0 - 3.8 K/mm3) 2.10 Steele # (Auto) (0.1 - 0.8 K/mm3) 0.74 Eos # (Auto) (0.0 - 0.2 K/mm3) 0.21 H Baso # (Auto) (0.0 - 0.2 K/mm3) 0.03 Nucleated RBCs # (Man) (0.0 - 0.1 K/mm3) 0.00 Laboratory Tests 10/27 2208 Urines Urine Color (YELLOW) YELLOW Urine Appearance (CLEAR) CLEAR Urine pH (5.0 - 9.0) 7.0 Ur Specific Summers (1.003 - 1.030) 1.015 Urine Protein (NEGATIVE MG/DL) 15 Urine Glucose (UA) (NORMAL MG/DL) NORMAL Urine Ketones (NEGATIVE MG/DL) NEGATIVE Urine Blood (NEGATIVE Black/mm3) NEGATIVE Urine Nitrite (NEGATIVE) NEGATIVE Urine Bilirubin (NEGATIVE MG/DL) NEGATIVE Urine Urobilinogen (NORMAL MG/DL) NORMAL Ur Leukocyte Esterase (NEGATIVE /mm3) NEGATIVE Urine RBC (0 - 3 RBC/HPF) 0-3 Urine WBC (0 - 5 WBC/HPF) 0-3 Ur Epithelial Cells (FEW EPI/HPF) RARE Amorphous Sediment (NONE) FEW H Urine Bacteria (NONE) MANY H Radiology data: Recent Impressions: RADIOLOGY - XR CHEST 1V 10/27 2031 Report Impression - Status: SIGNED Entered: 10/27/20232050 IMPRESSION: Unremarkable frontal chest radiograph. Impression By: [email or web address] - Ta Cardoza MD Results: labs reviewed, vital signs reviewed, x-ray personally reviewed, current med profile rev'd Diagnosis, Assessment Plan Consultants: cardiology Free Text DxA P Notes Free text DxA P notes: #2:1 Atrial flutter with rapid ventricular response Continues in a flutter despite course of digoxin and metoprolol. HDS, maintaining MAP > 65. Troponin x1 negative. Pro BNP 2k, TSH wnl. - Planned PIEDAD with possible cardioversion later today, remains NPO since AM Added Lovenox, 1x.25mcg dig and increased Metoprolol 50->100mg BID, per cards Echocardiogram pending EP Cardiology Dr. Jones following #HARLEY (acute kidney injury), Resolved. OSH creatinine 1.30-> 1.1. Likely Pre-Renal Azotemia etiology. Avoid nephrotoxic's DVT prophylaxis: Lovenox Diet: NPO Full code Quality: Gen Med Crit Care VTE Prophylaxis VTE prophylaxis initiated: yes (mechanical comp device) Current Medications Current medication review: I attest that the foregoing medication list in the medical record is true, accurate, and complete to the best of my knowledge. BMI Screening > 25 or < 18.5 BMI status/follow-up: abnl BMI, pt to F/U w/PCP Attestations Attestation needed: teaching physician Abel Lyons 10/28/23 1631: Attestations Teaching Physician Attestation F/U visit w/ resident: I saw and examined the patient with the resident Dr Christianson PGy1 and . . . agree with the resident's findings and plan. 57 yoM with no previous h/o CAD admitted with sudden onset palpitation and fatigue, found to have new onset Aflutter rate 140s. Pt failed to convert after multiple doses digoxin and metoprolol, subsequently transfered from [facility] to [facility] for further workup and treatment. Pt currently still in Aflutter rate 130s, and symptomatic with palpitation. He's started on anticoagulation and is scheduled for PIEDAD in preparation for cardioversion today with Dr Jones. Aflutter with RVR, new onset Fatigue with palpitation, 2/2 aflutter H/o NHL s/p treatment, currently in remission Continue lovenox, metoprolol 100 mg bid Will monitor overnight after cardioversion F/u Echo at 1351 at 1632 RPT #:[id number] END OF REPORT [facility] 2023-10-27 22:24:00 [facility] ([facility]) Hospitalist History Physical REPORT#:[id number] REPORT STATUS: Signed REPORT INITIALIZATION DATE:10/27/23 TIME: 2223 PATIENT: DENILSON DAVIS UNIT #: [id number] ROOM/BED: [place] [id number] : 67 AGE: 57 SEX: M ATTEND: Abel Lyons MD ADM AUTHOR: Oly Bhakta APRN REPT SERVICE DT/TIME: 10/27/232223 * ALL edits or amendments must be made on the electronic/computer document * Oly Bhakta 10/27/232223: History of Present Illness HPI Chief complaint: A Flutter PCP: PCP: Undefined Provider HPI: The patient is a 57-year-old male with a remote history of non-Hodgkin's lymphoma s/p chemo and radiation (in remission since 2012) who presents to the outside emergency department for complaint of atrial flutter. Patient states he started feeling increased fatigue with shortness of breath around 2 PM while at work. Patient usually monitors his blood pressure and heart rate at home at this time was reading 140s and this persisted the whole day prompting patient to seek medical evaluation. On outside hospital ED patient was found with a flutter with RVR, BNP 1862, elevated creatinine 1.38, but hemodynamically stable. Patient received multiple antiarrhythmic medications: -Digoxin 500 mcg at 13:13 -Digoxin to 50 mcg at 15:31 -Metoprolol 5 mg IV push at 13:12 -Metoprolol 50 mg p.o. at 13:12 -Metoprolol 5 mg IV push at 13: 40 Patient's heart rate did come down to 70 at 1 point and patient appears stable to be discharged. However once patient moved out of the heart rate went back into a flutter with RVR and patient was transferred to [facility] for higher level of care with cardiology consultation; Dr. Jones accepted. Per EMS, heart rates states in the 80s though occasionally going to the 130s enroute to [facility]. ED presentation found patient remaining in flutter with RVR 130-140s patient received over the age x 2 but heart rate remains in 130s. Discuss[address] with Dr. Jones and he recommends giving another 25 mg of metoprolol p.o. and monitor patient since patient is hemodynamically stable and will see patient in a.m. he said. Hx Obtained From Patient, Prior medical records, ED physician History Past medical history: Reports: (non-hodgkins lymphoma 2011). Denies: Diabetes mellitus, Hypertension, Seizure disorder. Past surgical history: Reports: Hernia repair, (left elbow tendon). Denies: CABG, Cholecystectomy. Family history: Reports: Cancer, Heart disease, Hypertension, Kidney disease/stones. Denies: Seizure disorder, Stroke/TIA. Alcohol use: Denies EtOH use Drug use: Denies recreational drugs Smoking status for patients 13 years old or older: Never Smoker Medication/Allergy-Vaccine Hx Allergies: Coded Allergies: No Known Allergies (09/26/13) Review of Systems Constitutional: fatigue, generalized weakness. Denies: chills. Skin: Denies: abrasion, bruising, contusion. Allergy/Immun: Denies: allergic reaction, anaphylaxis, hives. Eyes: Denies: redness, discharge, visual loss/blurred. ENT: Denies: ear drainage, ear ringing, earache. Respiratory: Reports: SOB. Denies: NIELSEN (dyspnea on exertion), hemoptysis, wheezing. Cardiovascular: palpitations. Denies: NIELSEN (dyspnea on exertion), edema. GI: Denies: abdominal pain, anorexia, constipation. : Denies: dysuria, flank pain, frequency. Musculoskeletal: Denies: arthritis, extremity pain. Heme: Denies: adenopathy, bleeding, bruising. Neuro: Denies: bladder dysfunction, bowel dysfunction, change in LOC. All systems rev neg: except as marked Objective General VS/I O: Vital Signs: Date Time Temp Pulse Resp B/P B/P Pulse O2 O2 Flow FiO2 Mean Ox Delivery Rate 0821 135 16 132/94 106 98 Room air 0818 98 0726 133 16 120/95 103 96 Room air 0257 121 19 137/87 103 99 10/27 2226 138 18 145/113 123 99 Room air 10/27 1931 97.4 132 19 127/84 98 99 Room air 24 hour I O ending at 0700: 0700 10/27 1900 Intake Total Output Total Balance Patient 89.091 kg Weight Weight Stated/Reported Measurement Method PATIENT WEIGHT: Weight (lb): Weight (oz): Weight (kg): 89.091 Medications: Active Meds + DC'd Last 24 Hrs Metoprolol Tartrate (LOPRESSOR) 50 MG Q12HR PO Acetaminophen (TYLENOL) 650 MG Q4H PRN PRN PO Hydralazine HCl (APRESOLINE) 10 MG Q4H PRN PRN IV Metoprolol Tartrate (LOPRESSOR 5MG IJ) 5 MG Q6H PRN PRN IV Ondansetron HCl (ZOFRAN) 4 MG Q8H PRN PRN IV Metoprolol Tartrate (LOPRESSOR) 25 MG ONCE ONE PO (DC) Digoxin (LANOXIN) 0.25 MG X1ED STA PO (DC) Physical Exam General appearance: alert, awake, oriented Head/Eyes: atraumatic, normal eyelids/periorb., normocephalic ENT: normal ear left, normal ear right, normal nose Neck: full range of motion, non-tender, no bruit/NL carotids Cardiovascular: irregularly irregular, tachycardic, regular rate rhythm Respiratory: aerating well, symmetric expansion, no distress Abdomen: non-tender, normal bowel sounds, soft, no distention Genitourinary: no bladder distention, no flank pain, no urinary catheter Extremities: moves all, normal range of motion Musculoskeletal: painless range of motion, no CVA tenderness, no midline vertebral tend, no muscle spasm Neuro/FUR DRESSER: alert, oriented X 3, normal speech Skin: dry, intact, normal temperature, no rash Results Findings/Data: Laboratory Tests 10/27 2207 Chemistry Sodium (137 - 145 MMOL/L) 139 Potassium (3.5 - 5.1 MMOL/L) 4.4 Chloride (98 - 107 MMOL/L) 104 Carbon Dioxide (22 - 30 MMOL/L) 31 H BUN (9 - 20 MG/DL) 16 Creatinine (0.66 - 1.25 MG/DL) 1.10 Glomerular Filtr Rate > 60 Glucose (74 - 106 MG/DL) 108 H Calcium (8.4 - 10.2 MG/DL) 9.6 Magnesium (1.6 - 2.3 MG/DL) 2.7 H Troponin I (0.012 - 0.033 NG/ML) 0.016 NT-Pro-B Natriuret Pep (pg/mL) 2170.0 TSH (0.465 - 4.68 MIU/L) 1.010 Laboratory Tests 10/27 2207 Coagulation INR (0.86 - 1.14) 1.2 H APTT (27.2 - 37.9 SECONDS) 40.4 H PT Patient/Control Mix (10.1 - 12.6 SECONDS) 13.4 H Laboratory Tests 10/278 Hematology WBC (3.8 - 9.8 K/MM3) 9.8 RBC (3.95 - 5.67 M/MM3) 4.65 Hgb (12.4 - 16.7 G/DL) 15.4 Hct (35.9 - 49.5 %) 44.6 MCV (81.7 - 96.1 fL) 96 MCH (27.6 - 33.2 pg) 33.1 MCHC (32.9 - 35.5 %) 34.5 RDW (12.1 - 15.2 %) 13.2 Plt Count (129 - 368 K/MM3) 332 Neut # (Auto) (2.0 - 7.6 K/mm3) 6.72 Lymph # (Auto) (1.0 - 3.8 K/mm3) 2.10 Steele # (Auto) (0.1 - 0.8 K/mm3) 0.74 Eos # (Auto) (0.0 - 0.2 K/mm3) 0.21 H Baso # (Auto) (0.0 - 0.2 K/mm3) 0.03 Nucleated RBCs # (Man) (0.0 - 0.1 K/mm3) 0.00 Laboratory Tests 10/27 2207 Urines Urine Color (YELLOW) YELLOW Urine Appearance (CLEAR) CLEAR Urine pH (5.0 - 9.0) 7.0 Ur Specific Summers (1.003 - 1.030) 1.015 Urine Protein (NEGATIVE MG/DL) 15 Urine Glucose (UA) (NORMAL MG/DL) NORMAL Urine Ketones (NEGATIVE MG/DL) NEGATIVE Urine Blood (NEGATIVE Black/mm3) NEGATIVE Urine Nitrite (NEGATIVE) NEGATIVE Urine Bilirubin (NEGATIVE MG/DL) NEGATIVE Urine Urobilinogen (NORMAL MG/DL) NORMAL Ur Leukocyte Esterase (NEGATIVE /mm3) NEGATIVE Urine RBC (0 - 3 RBC/HPF) 0-3 Urine WBC (0 - 5 WBC/HPF) 0-3 Ur Epithelial Cells (FEW EPI/HPF) RARE Amorphous Sediment (NONE) FEW H Urine Bacteria (NONE) MANY H Radiology data: Recent Impressions: RADIOLOGY - XR CHEST 1V 10/27 2031 Report Impression - Status: SIGNED Entered: 10/27/20232050 IMPRESSION: Unremarkable frontal chest radiograph. Impression By: [email or web address] - Ta Cardoza MD Results: labs reviewed, vital signs reviewed, vital signs stable, EKG personally reviewed, x-ray personally reviewed, current med profile rev'd Diagnosis, Assessment Plan Problem List/A P: 1. Atrial flutter with rapid ventricular response 2. HARLEY (acute kidney injury) 3. Elevated brain natriuretic peptide (BNP) level Consultants: cardiology Plan discussed with: patient, admitting physician, collaborating MD, nurse Time spent: Time spent on patient care (minutes): 60 Code Status/Resusc. Discussion Resuscitation discussion: Discussed with: patient Code status: full code Free Text DxA P Notes Free Text DxA P Notes: DxA P #Atrial flutter with rapid ventricular response Telemetry Remains in A-fib despite multiple antiarrhythmic medication Hemodynamically stable As needed metoprolol First set negative troponin,trend Serial EKG Echocardiogram Cardiology Dr. Jones following #HARLEY (acute kidney injury) OSH creatinine 1.30 Unknown creatinine level and chronicity Monitor consult Avoid nephrotoxic's Obtain renal function #Elevated brain natriuretic peptide (BNP) level Rule out new CHF onset CXR Unremarkable frontal chest radiograph Daily weight Strict I's and O's No lower extremity edema On room air saturating well DVT prophylaxis SCDs for now until seen by card (for potential invasive procedure) Full code Disposition: Pending clinical improvement Quality: Gen Med Crit Care VTE Prophylaxis VTE prophylaxis initiated: yes (mechanical comp device) Current Medications Current medication review: I attest that the foregoing medication list in the medical record is true, accurate, and complete to the best of my knowledge. BMI Screening > 25 or < 18.5 Patient's BMI: Current BMI: 27.4 BMI status/follow-up: abnl BMI, pt to F/U w/PCP Abel Lyons 10/28/23 1626: Attestations Physician Attestation Agree w/findings plan: I saw and examined patient on 10/28/23 and agree with the findings and plan as documented by Ms Chestero, FIRST AID DIRECTOR * my personal evaluation is 57 yoM with no previous h/o CAD admitted with sudden onset palpitation and fatigue, found to have new onset Aflutter rate 140s. Pt failed to convert after multiple doses digoxin and metoprolol, subsequently transfered from [facility] to [facility] for further workup and treatment. Pt currently still in Aflutter rate 130s, and symptomatic with palpitation. He's started on anticoagulation and is scheduled for PIEDAD in preparation for cardioversion today with Dr Jones. Aflutter with RVR, new onset Fatigue with palpitation, 2/2 aflutter H/o NHL s/p treatment, currently in remission Continue lovenox, metoprolol 100 mg bid Will monitor overnight after cardioversion F/u Echo DOS 10/28/23 at 0931 at 1631 RPT #:[id number] END OF REPORT [facility] 2023-10-27 21:31:00 [facility] ([facility]) EMERGENCY PROVIDER REPORT REPORT#:[id number] REPORT STATUS: Signed DATE:10/27/23 TIME: 2130 PATIENT: DENILSON DAVIS UNIT #: [id number] ROOM/BED: [facility] AGE: 57 SEX: M PCP PHYS: Undefined Provider SERVICE AUTHOR: Eulalio Cano MD LOCATION: [facility] * ALL edits or amendments must be made on the electronic/computer document * HPI-Dyspnea/Wheezing Free Text HPI Notes Free Text HPI Notes 57-year-old male history of remote non-Hodgkin's lymphoma transferred from outside hospital for atrial flutter. Patient explains yesterday 2 PM he noted some increased fatigue and shortness of breath while at work, at home monitor and heart rate which is in the 140s, this persisted today prompting ED visit to outside hospital where he was noted to be in a flutter RVR, hemodynamically stable, received the following medications: -Digoxin 500 mcg at 13:13 -Digoxin to 50 mcg at 15:31 -Metoprolol 5 mg IV push at 13:12 -Metoprolol 50 mg p.o. at 13:12 -Metoprolol 5 mg IV push at 13: 40 Labs notable for BNP 1862, creatinine 1.38. Transferred for further management of persistent a flutter RVR. In route by EMS, heart rates in the 80s though occasionally going to the 130s. General Initial Greet Date/Time 10/27/232024 Presentation Chief Complaint Shortness of breath Review of Systems Free Text ROS Notes Free Text ROS Notes Constitutional: Denies fevers or chills Eyes: Denies vision changes ENMT: Denies sore throat Pulm: See HPI CV: See HPI GI: Denies vomiting or diarrhea : Denies painful urination MSK: Denies recent trauma Skin: Denies new rashes Neuro: Denies new numbness or tingling or weakness Endocrine: Denies unexpected weight loss Heme: Denies bleeding disorders Past Medical History - Adult Stated Complaint NEW ONSET A-FLUTTER W/ RVR Allergies Coded Allergies: No Known Allergies (09/26/13) Past Medical History: Reports: (non-hodgkins lymphoma 2011). Past Surgical History: Reports: (left elbow tendon). Smoking status for patients 13 years old or older: Unknown,if ever smoked Physical Exam Vital Signs Vital Signs First Documented: Result Date Time Pulse Ox 99 10/27 1930 B/P 127/84 10/27 1930 B/P Mean 98 10/27 1930 O2 Delivery Room air 10/27 1930 Temp 36.3 10/27 1930 Pulse 132 10/27 1930 Resp 10/27 Last Documented: Result Date Time Pulse Ox 99 10/27 1930 B/P 127/84 10/27 1930 B/P Mean 98 10/27 1930 O2 Delivery Room air 10/27 1930 Temp 36.3 10/27 1930 Pulse 132 10/27 1930 Resp 10/27 Review of Vital Signs Reviewed, Vital signs abnormal Free Text PE Notes Free Text PE Notes General: A Ox3, well appearing, no apparent distress HEENT: normocephalic, atraumatic, PERRLA, oropharynx non-erythematous, moist oral mucosa Neck: supple, trachea midline, No significant JVD Pulm: nonlabored, clear to auscultation b/l, good air movement CV: Irregular rhythm and occasionally tachycardic 130s, ranges 80s to 130s, normal S1 and S2, no murmur, 2+ radial and pedal pulses b/l, no pedal edema GI: nondistended, nontender, no rebound tenderness or guarding MSK: no gross deformity, normal range of motion of all extremities Skin: no rash Neuro: Moving all extremity spontaneously Psych: calm and cooperative Interpretation Diagnostics Lab Results Interpretation Results Recent Impressions: RADIOLOGY - XR CHEST 1V 10/27 2031 Report Impression - Status: SIGNED Entered: 10/27/20232050 IMPRESSION: Unremarkable frontal chest radiograph. Impression By: [email or web address] - Ta Cardoza MD Lab Imaging Statement Laboratory radiographic studies reviewed and considered in the medical decision-making. ECG #1 Interpretation Text/Dict Note Atrial flutter rate 96, no STEMI, T wave inversions in V3 through V5 Date 10/27/23 Time 1999 Interpreted by and reviewed by me, Independently interpreted, ED physician Re-Evaluation MDM Free Text MDM Notes Free Text MDM Notes 57-year-old male history of remote non-Hodgkin's lymphoma transferred from outside hospital for atrial flutter. On exam, patient afebrile, occasionally tachycardic 130s, normal blood pressure, heart irregularly irregular, lungs clear, abdomen soft and nontender. Chest x-ray without acute process. EKG atrial flutter, no STEMI, T wave inversions in precordial leads. Plan to obtain repeat cardiac labs, admit to hospitalist service telemetry for further management of a flutter RVR, cardiology consult. )( Re-Evaluation/Progress #1 Text/Dict Note Accepted for admission by hospitalist service telemetry, Dr. Qureshi. Will give dose of digoxin 250 mcg orally Time of Re-Eval 2147 Re-Evaluation/Progress #2 Text/Dict Note Labs with normal creatinine, normal troponin, BNP 2100. Hemodynamically stable. Time of Eval 2314 ED Course Medication(s) Ordered Medication(s) Ordered: Cardiovascular Drugs Sig/Hiren Start time Last Medication Dose Route Stop Time Status Admin Digoxin 0.25 MG X1ED STA 10/27 2146 DC 10/27 PO 10/27 Patient Discharge Departure Vital Signs/Condition Vital Signs First Documented: Result Date Time Pulse Ox 99 10/27 1930 B/P 127/84 10/27 1930 B/P Mean 98 10/27 1930 O2 Delivery Room air 10/27 1930 Temp 36.3 10/27 1930 Pulse 132 10/27 1930 Resp 19 02/28 1931 Last Documented: Result Date Time Pulse Ox 99 10/27 1930 B/P 127/84 10/27 1930 B/P Mean 98 10/27 1930 O2 Delivery Room air 10/27 1930 Temp 36.3 10/27 1930 Pulse 132 10/27 1930 Resp 19 10/27 1930 All vital signs available at the time of this entry have been reviewed. Clinical Impression Clinical Impression Primary Impression: Atrial flutter with rapid ventricular response Secondary Impressions: HARLEY (acute kidney injury), Elevated brain natriuretic peptide (BNP) level Disposition Decision Hospitalize Hosp Physician Name Morena Qureshi MD Hosp Physician Hospitalist Request Time 2147 Request Date 10/27/23 )( Accepts Hospitalization Yes )( Reason for Hospitalization aflutter RVR, HARLEY )( Accepted Time 2147 )( Accepted Date 10/27/23 Call Information will see patient, agrees with eval, agrees with plan at [address] [facility] #:[id number] END OF REPORT HCAWU
[2025-06-04 12:42] VITALS: BMI 26.7
[2025-06-04] MEDS ORDERED: HEPARIN/D5W 25,000 UNIT/500 ML BAG IV SCH (13:00)
[2025-06-04] MEDS: AMIODARONE HCL 900 MG in Dextrose 5%-Water 482 ML IV SCH (13:19)
[2025-06-04] MEDS: NA CHLORIDE 0.9% 1,000 ML IV SCH (13:20)
--- NOTE | 2025-06-04 15:33 | P.HP ---
Certification for Inpatient Patient admitted to: Inpatient With expected LOS: >2 Midnights Patient will require the following post-hospital care: None Practitioner: I am a practitioner with admitting privileges, knowledge of patient current condition, hospital course, and medical plan of care. Services: Services provided to patient in accordance with Admission requirements found in Title 42 Section 412.3 of the Code of Federal Regulations <Durga Patterson - Last Filed: 06/04/25 15:31> Patient History Date of Service: 06/04/25 Reason for admission: Atrial flutter History of Present Illness: 59-year-old male with history of previous episodes of atrial fibrillation presents the emergency department at outside hospital for rapid heart rate. His heart rate was found to be in the 140s, atrial flutter. Outside hospital discussed case with cardiology who recommended amiodarone drip and transferred to our facility for further management with possible cardioversion. Upon arrival to our hospital patient was still in atrial flutter with rate in the 140s, amiodarone infusion ongoing. He was given Eliquis at outside hospital this morning. Patient will be admitted to the ICU for further management of atrial flutter - Past Medical/Surgical History Has patient received pneumonia vaccine in the past: No Diabetic: No -: Afib -: Non-Hodgkins Lymphoma -: Cardioversion -: Ruptured Bicep Repair - Family History Father -: Heart disease, Lung disease - Social History Smoking Status: Never smoker Alcohol use: Yes CD- Drugs: No Caffeine use: Yes Place of Residence: Home <Durga Patterson - Last Filed: 06/04/25 15:31> Date of Service: 06/18/25 <Ron Adams - Last Filed: 06/18/25 07:04> Allergies No Known Allergies Allergy (Unverified 06/04/25 13:08) Review of Systems 10-point ROS is otherwise unremarkable Cardiovascular: Palpitations <Durga Patterson - Last Filed: 06/04/25 15:31> Physical Examination - Vital Signs Temperature: 97 F Blood Pressure: 125/93 Pulse: 74 Respirations: 20 Pulse Ox (%): 94 - Physical Exam General: Alert, In no apparent distress, Oriented x3 HEENT: Atraumatic, PERRLA, EOMI Neck: Supple, 2+ carotid pulse no bruit, No LAD Respiratory: Clear to auscultation bilaterally, Normal air movement Cardiovascular: Normal S1 S2, Irregular heart rate/rhythm Gastrointestinal: Normal bowel sounds, No tenderness Musculoskeletal: No tenderness Integumentary: No rashes Neurological: Normal speech, Normal strength at 5/5 x4 extr, Normal affect <Durga Patterson - Last Filed: 06/04/25 15:31> Assessment and Plan - Plan Assessment: Atrial flutter Plan: Atrial flutter Patient recently converted to sinus rhythm continue amiodarone infusion per protocol Cardiology consulted Initiated on Eliquis N.p.o. after midnight in case of need for cardioversion/if patient reverts DVT PPX: Resume Eliquis-new med for patient Code status:Full code Discharge Plan: Home Plan to discharge in: 48 Hours - Advance Directives Does patient have a Living Will: No Does patient have a Durable POA for Healthcare: No - Code Status/Comfort Care Code Status Assessed: Yes (Full code) Critical Care: No Time Spent Managing Pts Care (In Minutes): 70 <Durga Patterson - Last Filed: 06/04/25 15:31> Physician Review: Patient Assessed, Agree with Above Assessment and Plan <Ron Adams - Last Filed: 06/18/25 07:04>
[2025-06-04] MEDS: SOTALOL HCL 80 MG TAB PO SCH (16:12)
[2025-06-04] MEDS: APIXABAN 5 MG TABLET PO SCH (21:21)
[2025-06-05 05:50] LABS: Absolute Lymphocytes (CBC) 2.0 K/uL (0.7-4.9); Hematocrit 36.8 % (39.6-49.0); Hemoglobin 12.7 g/dL (13.6-17.9); MCH 33.5 pg (27.0-35.0); MCHC 34.6 g/dL (32.0-36.0); MCV 96.8 fL (80-100); MPV 7.2 fL (7.6-11.3); Nucleated RBC Absolute Count 0.0 (0-0); Nucleated Red Blood Cells % 0.1 % (0-0); RBC Red Blood Cell Count 3.80 M/uL (4.33-5.43); White Blood Count 8.40 thou/uL (4.3-10.9)
[2025-06-05 06:19] LABS: ALT/SGPT 39.0 U/L (16-61); AST/SGOT 19.0 U/L (15-37); Albumin 2.8 g/dL (3.4-5.0); Albumin/Globulin Ratio 0.8 (1.1-1.8); Alkaline Phosphatase 60.0 U/L (45-117); Anion Gap 7.0 mEq/L (5.0-15.0); BUN Blood Urea Nitrogen 16.0 mg/dL (7-18); Globulin 3.4 g/dL (2.3-3.5); Glucose Level 99.0 mg/dL (74-106); Magnesium 1.9 mg/dL (1.6-2.4); Potassium 4.0 mEq/L (3.5-5.1); Thyroid Stimulating Hormone 0.578 uIU/mL (0.358-3.740)
--- NOTE | 2025-06-05 11:57 | P.CNS ---
Date of Consult: 06/05/25 Chief Complaint: Atrial flutter History of Present Illness: Patient with PMH of AF s/p PIEDAD DCCV 2 years ago, presented with palpitations, found to be in RVR, denies chest pain, no EOTH use, no drugs use, no breathing problems. Allergies No Known Allergies Allergy (Unverified 06/04/25 13:08) Home medications list reviewed: Yes Home Medications: NK [No Home Meds] 06/04/25 - Past Medical/Surgical History Diabetic: No -: Afib -: Non-Hodgkins Lymphoma -: Cardioversion -: Ruptured Bicep Repair - Family History Father Medical History: Heart disease, Lung disease - Social History Alcohol use: Yes CD- Drugs: No Caffeine use: Yes Place of Residence: Home Review of Systems 10-point ROS is otherwise unremarkable Physical Examination Temp Pulse Resp BP Pulse Ox 98.5 F 72 18 132/92 H 95 06/05/25 08:00 06/05/25 08:00 06/05/25 08:00 06/05/25 08:00 06/05/25 08:00 General: Alert, In no apparent distress HEENT: Atraumatic, PERRLA, Mucous membr. moist/pink, EOMI, Sclerae nonicteric Neck: Supple, 2+ carotid pulse no bruit, No LAD, Without JVD or thyroid abnormality Respiratory: Clear to auscultation bilaterally, Normal air movement Cardiovascular: Regular rate/rhythm, Normal S1 S2 Gastrointestinal: Normal bowel sounds, No tenderness Musculoskeletal: No tenderness Integumentary: No rashes Neurological: Normal gait, Normal speech, Normal tone, Normal affect Lymphatics: No axilla or inguinal lymphadenopathy Laboratory Data (last 24 hrs) 06/05/25 06/05/25 05:28 05:28 WBC 8.40 Hgb 12.7 L Hct 36.8 L Plt Count 255 Sodium 139 Potassium 4.0 BUN 16 Creatinine 1.10 Glucose 99 Magnesium 1.9 Total Bilirubin 0.8 AST 19 ALT 39 Alkaline Phosphatase 60 - Problems (1) Atrial fibrillation Current Visit: Yes Status: Acute Plan: Patient was transferred from [facility] for RVR, was on amiodarone drip but converted to sinus rhythm. currently on Sotalol 80 mg po BID (EKG after 3rd dose) continue Eliquis 5 mg po BID for 1 month then switch to ASA 81 mg daily as patient [id number] score is 1 if EKG show normal QTc then patient can go home and follow up with cardiology as outpatient. (2) HTN (hypertension) Current Visit: Yes Status: Acute Plan: currently BP is under control, only on Sotalol continue to monitor
--- NOTE | 2025-06-05 16:39 | P.PN ---
Subjective Date of Service: 06/05/25 Chief Complaint: Atrial flutter Subjective: No chest pain or shortness of breath. No nausea or vomiting. No abdominal pain. No obvious bleeding. Looks comfortable in the bed. Objective: General appearance: Alert and comfortable CVS: Normal S1 and S2 Lungs: Clear to auscultation bilaterally Abdomen: Soft, bowel sounds present, no tenderness Extremities: No lower extremity edema Physical Examination - Vital Signs Temperature: 98.2 F Blood Pressure: 148/92 Pulse: 63 Respirations: 18 Pulse Ox (%): 96 - Studies Laboratory Data (last 24 hrs) 06/05/25 06/05/25 05:28 05:28 WBC 8.40 Hgb 12.7 L Hct 36.8 L Plt Count 255 Sodium 139 Potassium 4.0 BUN 16 Creatinine 1.10 Glucose 99 Magnesium 1.9 Total Bilirubin 0.8 AST 19 ALT 39 Alkaline Phosphatase 60 Assessment And Plan - Plan 1. Atrial flutter Cardiology consulted, appreciate recommendations Initiated on Eliquis Started on sotalol, will repeat EKG this evening after third dose. 2. Hypertension: Start medications if blood pressure stays high. Plan discussed with the patient, answered all questions. DC home tomorrow if labs and vitals stable
[2025-06-05 21:32] VITALS: O2SAT 96
[2025-06-06 06:42] LABS: Absolute Lymphocytes (CBC) 1.7 K/uL (0.7-4.9); Hematocrit 36.3 % (39.6-49.0); Hemoglobin 13.0 g/dL (13.6-17.9); MCH 34.0 pg (27.0-35.0); MCHC 35.8 g/dL (32.0-36.0); MCV 95.1 fL (80-100); MPV 7.5 fL (7.6-11.3); Nucleated RBC Absolute Count 0.0 (0-0); Nucleated Red Blood Cells % 0.0 % (0-0); RBC Red Blood Cell Count 3.81 M/uL (4.33-5.43); White Blood Count 6.30 thou/uL (4.3-10.9)
[2025-06-06 06:57] LABS: ALT/SGPT 39.0 U/L (16-61); AST/SGOT 17.0 U/L (15-37); Albumin 2.7 g/dL (3.4-5.0); Albumin/Globulin Ratio 0.8 (1.1-1.8); Alkaline Phosphatase 66.0 U/L (45-117); Anion Gap 9.7 mEq/L (5.0-15.0); BUN Blood Urea Nitrogen 13.0 mg/dL (7-18); Globulin 3.6 g/dL (2.3-3.5); Glucose Level 98.0 mg/dL (74-106); Magnesium 2.0 mg/dL (1.6-2.4); Potassium 3.7 mEq/L (3.5-5.1)
[2025-06-06] MEDS: POTASSIUM CL SA 10 MEQ TAB PO ONE (08:57)
[2025-06-06 09:00] VITALS: BP 148/97; TEMP 97.9
--- NOTE | 2025-06-06 10:24 | P.PN ---
Subjective Date of Service: 06/06/25 Chief Complaint: Atrial flutter Subjective: No new changes, No C/O voiced, Tolerating diet, Ambulating, Improving Review of Systems 10-point ROS is otherwise unremarkable Physical Examination - Vital Signs Temperature: 97.9 F Blood Pressure: 148/97 Pulse: 62 Respirations: 18 Pulse Ox (%): 96 - Physical Exam General: Alert, In no apparent distress HEENT: Atraumatic, PERRLA, EOMI Neck: Supple, JVD not distended Respiratory: Clear to auscultation bilaterally, Normal air movement Cardiovascular: Regular rate/rhythm, Normal S1 S2 Gastrointestinal: Normal bowel sounds, No tenderness Musculoskeletal: No tenderness Integumentary: No rashes Neurological: Normal speech, Normal tone, Normal affect Lymphatics: No axilla or inguinal lymphadenopathy - Studies Laboratory Data (last 24 hrs) 06/06/25 06/06/25 06:16 06:16 WBC 6.30 Hgb 13.0 L Hct 36.3 L Plt Count 247 Sodium 139 Potassium 3.7 BUN 13 Creatinine 1.12 Glucose 98 Magnesium 2.0 Total Bilirubin 0.7 AST 17 ALT 39 Alkaline Phosphatase 66 Medications List Reviewed: Yes Assessment And Plan - Current Problems (Diagnosis) (1) Atrial fibrillation Current Visit: Yes Status: Acute Plan: Patient was transferred from [facility] for RVR, was on amiodarone drip but converted to sinus rhythm. currently on Sotalol 80 mg po BID (EKG after 3rd dose show normal QTc) continue Eliquis 5 mg po BID for 1 month then switch to ASA 81 mg daily as patient [id number] score is 1 patient can go home and follow up with cardiology as outpatient. (2) HTN (hypertension) Current Visit: Yes Status: Acute Plan: currently BP is high start Losartan 25 mg daily continue to monitor
--- NOTE | 2025-06-06 13:24 | P.DS ---
Admission Date: 06/04/25 Discharge Date: 06/06/25 Disposition: ROUTINE DISCHARGE Discharge Condition: GOOD Reason for Admission: Atrial flutter Hospital Course: 1. Atrial flutter Cardiology consulted, appreciate recommendations Initiated on Eliquis Started on sotalol 2. Hypertension: Started on losartan as per cardiology recommendations. Hospital course: 59-year-old patient admitted with atrial flutter, cardiology was consulted, he was started on sotalol, he converted to sinus, cardiology evaluated the patient today and he cleared the patient to be discharged, when I see the patient today he is doing well without any acute problems and feels ready to go home, otherwise no other acute issues going on so I am planning to discharge him to go home and close follow-up with PCP and cardiology Subjective: No chest pain or shortness of breath. No nausea or vomiting. No abdominal pain. No obvious bleeding. Looks comfortable in the bed. Objective: General appearance: Alert and comfortable CVS: Normal S1 and S2 Lungs: Clear to auscultation bilaterally Abdomen: Soft, bowel sounds present, no tenderness Extremities: No lower extremity edema Vital Signs/Physical Exam: Temp Pulse Resp BP Pulse Ox 97.9 F 62 18 148/97 H 96 06/06/25 10:24 06/06/25 10:24 06/06/25 10:24 06/06/25 10:24 06/06/25 10:24 Laboratory Data at Discharge: WBC 6.30 thou/uL (4.3-10.9) 06/06/25 06:16 Hgb 13.0 g/dL (13.6-17.9) L 06/06/25 06:16 Hct 36.3 % (39.6-49.0) L 06/06/25 06:16 Plt Count 247 thou/uL (152-406) 06/06/25 06:16 Sodium 139 mEq/L (136-145) 06/06/25 06:16 Potassium 3.7 mEq/L (3.5-5.1) 06/06/25 06:16 BUN 13 mg/dL (7-18) 06/06/25 06:16 Creatinine 1.12 mg/dL (0.70-1.30) 06/06/25 06:16 Glucose 98 mg/dL (74-106) 06/06/25 06:16 Magnesium 2.0 mg/dL (1.6-2.4) 06/06/25 06:16 Total Bilirubin 0.7 mg/dL (0.2-1.0) 06/06/25 06:16 AST 17 U/L (15-37) 06/06/25 06:16 ALT 39 U/L (16-61) 06/06/25 06:16 Alkaline Phosphatase 66 U/L (45-117) 06/06/25 06:16 Home Medications: Apixaban [Eliquis] 5 mg PO BID #60 06/06/25 Losartan Potassium 25 mg PO DAILY 30 Days #30 tab 06/06/25 Sotalol HCl [Betapace*] 80 mg PO BID 6AM 6PM #60 tab 06/06/25 New Medications: Sotalol HCl [Betapace*] 80 mg PO BID 6AM 6PM #60 tab Apixaban [Eliquis] 5 mg PO BID #60 Losartan Potassium 25 mg PO DAILY 30 Days #30 tab Followup: Constantino Wild MD [ACTIVE - CAN ADMIT] - (f/u with cardiology in 5-7 days. follow up with PCP in 1 week with CBC and CMP)
== END 2025-06-06 12:06 | disposition home or self-care (01) | DRG 310 ==
LOC: 3RD-ICU 10:30 → 4TH 06-05 02:23
PROVIDERS: ADMIT Family Medicine; ATTEND Hospitalist
DX: I48.92 Unspecified atrial flutter (principal); I10 Essential (primary) hypertension; Z79.01 Long term (current) use of anticoagulants; Z79.899 Other long term (current) drug therapy
CPT/HCPCS: 36415; 80053; 83735; 84439; 84443; 85025; 93005; J0282; J7030; J7060